=== PATIENT | male | born 1970 | race African-American/Black ===

== ENCOUNTER 2018-07-09 12:39 | Inpatient (IN) | payer OTHER ==
[2018-07-09 14:08] VITALS: BMI 23.6
--- NOTE | 2018-07-09 17:20 | HP ---
CIWA Score - CIWA Score Nausea/Vomitin-No Nausea/No Vomiting Muscle Tremors: 2 Anxiety: 3 Agitation: 3 Paroxysmal Sweats: 3 Orientation: 0-Oriented Tacttile Disturbances: 2-Mild Itch/Numbness/Burn Auditory Disturbances: 0-None Visual Disturbances: 0-None Headache: 0-None Present CIWA-Ar Total Score: 13 Admission ROS BHS - HPI Chief Complaint: alcohol withdrawal symptoms Allergies/Adverse Reactions: Allergies Allergy/AdvReac Type Severity Reaction Status Date / Time No Known Allergies Allergy Verified 07/09/18 16:11 History of Present Illness: 48 yo male with hx of nicotine, alcohol, marijuana and cocaine dependence is here seeking alcohol detox. Last detox [facility] 09/19/17 -09/21/17 left AMA. Hx: bipolar and anxiety currently not on mediations. Denies suicidal / homicidal ideation or hx of suicide attempt. Denies hx seizure, blackouts or DTS. Longest period of sobriety four years (2008 - 2012). Exam Limitations: No Limitations - Ebola screening Have you traveled outside of the country in the last 21 days: No Have you had contact with anyone from an Ebola affected area: No Have you been sick,other than usual withdrawal symptoms: No Do you have a fever: No - Review of Systems Constitutional: Loss of Appetite, Changes in sleep, Weakness, Unintentional Wgt. Loss (55 lbs weight loss x 10 months) EENT: reports: No Symptoms Reported Respiratory: reports: No Symptoms reported Cardiac: reports: No Symptoms Reported GI: reports: Poor Appetite, Poor Fluid Intake : reports: No Symptoms Reported Musculoskeletal: reports: No Symptoms Reported Integumentary: reports: Other (cut rigth middle finger) Endocrine: reports: Increased Thirst Hematology: reports: No Symptoms Reported Psychiatric: reports: Orientated x3, Anxious Other Systems: Reviewed and Negative Patient History - Patient Medical History Hx Anemia: Yes (AT YOUNGER YEARS.) Hx Asthma: No Hx Chronic Obstructive Pulmonary Disease (COPD): No Hx Cancer: No Hx Cardiac Disorders: No Hx Congestive Heart Failure: No Hx Hypertension: No Hx Hypercholesterolemia: No Hx Pacemaker: No HX Cerebrovascular Accident: No Hx Seizures: No Hx Dementia: No Hx Diabetes: No Hx Gastrointestinal Disorders: No Hx Liver Disease: No Hx Genitourinary Disorders: No Hx Sexually Transmitted Disorders: No (DENIES) Hx Renal Disease (ESRD): No Hx Thyroid Disease: No Hx Human Immunodeficiency Virus (HIV): No (NEGATIVE HX) Hx Hepatitis C: No Hx Depression: Yes (NOT CURRENTLY ON MED) Hx Suicide Attempt: No (DENIES) Hx Bipolar Disorder: Yes Hx Schizophrenia: No - Patient Surgical History Past Surgical History: No Hx Neurologic Surgery: No Hx Cataract Extraction: No Hx Cardiac Surgery: No Hx Lung Surgery: No Hx Breast Surgery: No Hx Breast Biopsy: No Hx Abdominal Surgery: No Hx Appendectomy: No Hx Cholecystectomy: No Hx Genitourinary Surgery: No Hx Section: No Hx Orthopedic Surgery: No Anesthesia Reaction: No - PPD History Previous Implant?: No Documented Results: Negative w/o proof Results: CXR 2015 PPD to be Administered?: No - Smoking Cessation Smoking history: Current every day smoker Have you smoked in the past 12 months: Yes Aproximately how many cigarettes per day: 15 Hx Chewing Tobacco Use: No Initiated information on smoking cessation: Yes 'Breaking Loose' booklet given: 07/09/18 - Substance & Tx. History Hx Alcohol Use: Yes Hx Substance Use: Yes Substance Use Type: Alcohol, Cocaine Hx Substance Use Treatment: Yes ([facility] 09/20/17 [facility] ) - Substances Abused Alcohol Route: Oral Frequency: Daily Amount used: Vodka- 1 pint, Beer- 1 25oz, Age of first use: 10 Date of Last Use: 07/09/18 Cocaine Frequency: Daily Amount used: $200-300 Age of first use: 18 Date of Last Use: 07/07/18 Marijuana/Hashish Route: Smoking Frequency: 1-2 times per week Amount used: 1 gm Age of first use: 18 Date of Last Use: 07/07/18 Family Disease History - Family Disease History Family History: Denies Admission Physical Exam BHS - Vital Signs Vital Signs: Vital Signs - 24 hr 07/09/18 14:07 Temperature 99.6 F Pulse Rate 85 Respiratory 18 Rate Blood Pressure 134/71 - Physical General Appearance: Yes: Appropriately Dressed, Disheveled, Thin, Sweating, Anxious HEENTM: Yes: EOMI, Hearing grossly Normal, Normal ENT Inspection, Normocephalic , Normal Voice, VADIM, Pharynx Normal, Tm's normal Respiratory: Yes: Within Normal Limits Neck: Yes: Within Normal Limits Breast: Yes: Breast Exam Deferred Cardiology: Yes: Regular Rhythm, Regular Rate Abdominal: Yes: Normal Bowel Sounds, Non Tender, Flat, Soft Genitourinary: Yes: Within Normal Limits Back: Yes: Normal Inspection Musculoskeletal: Yes: full range of Motion, Gait Steady, Pelvis Stable Extremities: Yes: Within Normal Limits Neurological: Yes: bilingual medical assistant II-XII NML intact, Fully Oriented, Alert, Motor Strength 5/5, Depressed Affect Integumentary: Yes: Normal Color, Dry, Warm, Diaphoresis Lymphatic: Yes: Within Normal Limits - Diagnostic (1) Psychiatric disorder Current Visit: Yes Status: Suspected (2) Alcohol dependence with uncomplicated withdrawal Current Visit: Yes Status: Acute (3) Cannabis dependence, uncomplicated Current Visit: Yes Status: Acute (4) Cocaine dependence, uncomplicated Current Visit: Yes Status: Acute Cleared for Admission [facility] - Detox or Rehab [facility] Level of Care: Medically Managed Detox Regimen/Protocol: Librium [facility] Breath Alcohol Content Breath Alcohol Content: 0.021 Urine Drug Screen - Results Drug Screen Negative: No Urine Drug Screen Results: THC-Marijuana, ABDIRAHMAN-Cocaine
[2018-07-09] MEDS ORDERED: MENTHOL/PHENOL 1 EACH UD MM PRN (17:26)
[2018-07-09] MEDS ORDERED: LOPERAMIDE HCL 2 MG CAPSULE PO PRN (17:26)
[2018-07-09] MEDS ORDERED: MAGNESIUM HYDROX 2400MG/30ML ORAL SUSPENSION 30 ML CUP PO PRN (17:26)
[2018-07-09] MEDS ORDERED: MAG HYDROX/AL HYDROX/SIMETH 30 ML UNIT-DOSE CUP PO PRN (17:26)
[2018-07-09] MEDS ORDERED: hydrOXYzine PAMOATE 50 MG CAPSULE (FP) PO PRN (17:26)
[2018-07-09] MEDS ORDERED: guaiFENesin/D-METHORPHAN HB 10 ML UNIT-DOSE CUPS PO PRN (17:26)
[2018-07-09] MEDS ORDERED: P-EPHED 60MG/TRIPROLIDI 2.5MG TABLET PO PRN (17:26)
[2018-07-09] MEDS ORDERED: chlordiazePOXIDE HCL 25 MG CAPSULE PO PRN (17:26)
[2018-07-09] MEDS ORDERED: IBUPROFEN 400 MG TABLET (FP) PO PRN (17:26)
[2018-07-09] MEDS ORDERED: ACETAMINOPHEN 325 MG TABLET (FP) PO PRN (17:26)
[2018-07-09] MEDS ORDERED: MAGNESIUM CITRATE 300 ML BOTTLE PO PRN (17:26)
[2018-07-09] MEDS ORDERED: chlordiazePOXIDE HCL 25 MG CAPSULE PO ONE (18:30)
[2018-07-09] MEDS: BACITRACIN 0.9 GM PACKET TP SCH (19:22)
[2018-07-09] MEDS ORDERED: MELATONIN 5 MG TABLETS PO PRN (22:00)
[2018-07-09] MEDS: THIAMINE HCL 100 MG TABLET (FP) PO SCH (22:25)
[2018-07-09] MEDS: chlordiazePOXIDE HCL 25 MG CAPSULE PO SCH (22:25)
[2018-07-10 02:00] LABS: URINE APPEARANCE SLCLOUDY; URINE BILIRUBIN NEGATIVE (<2.0 mg/dL); URINE COLOR YELLOW; URINE GLUCOSE (UA) NEGATIVE (NEGATIVE); URINE KETONE TRACE (NEGATIVE); URINE LEUK ESTERASE TRACE (NEGATIVE); URINE NITRITE NEGATIVE (NEGATIVE); URINE PROTEIN NEGATIVE (NEGATIVE); URINE UROBILINOGEN 4.0 E.U/dl mg/dL (0.2-1.0)
[2018-07-10 02:23] LABS: URINE MUCUS RARE
[2018-07-10] MEDS: chlordiazePOXIDE HCL 25 MG CAPSULE PO SCH ×4 (05:29→23:09)
[2018-07-10] MEDS ORDERED: PRENATAL VITAMINS W/ FOLIC ACID TABLET (FP) PO SCH (10:00)
[2018-07-10 10:48] LABS: CHLORIDE 108 mmol/L (98-107); POTASSIUM 3.5 mmol/L (3.5-5.1); SODIUM 144 mmol/L (136-145)
[2018-07-10 10:50] LABS: HEMATOCRIT 38.2 % (35.4-49); MCH 33.1 pg (25.7-33.7); MEAN CELL VOLUME 97.2 fl (80-96); MEAN PLT VOLUME 11.1 fl (7.5-11.1); PLATELET COUNT 122 K/MM3 (134-434); RBC 3.93 M/mm3 (4.00-5.60); RDW 12.9 % (11.9-15.9); WHITE BLOOD COUNT 2.7 K/mm3 (4.0-10.0)
[2018-07-10] MEDS: BACITRACIN 0.9 GM PACKET TP SCH (10:55)
[2018-07-10 11:11] LABS: ALBUMIN 3.3 g/dl (3.4-5.0); ALK PHOS 46 U/L (45-117); ANION GAP 6 MMOL/L (8-16); BILIRUBIN,TOTAL 0.7 mg/dL (0.2-1.0); BLOOD UREA NITROGEN 16 mg/dL (7-18); CALCIUM 8.4 mg/dL (8.5-10.1); CO2 30 mmol/L (21-32); CREATININE 0.8 mg/dL (0.7-1.3); GLUCOSE,RANDOM 96 mg/dL (74-106); SGOT/AST 51 U/L (15-37); SGPT/ALT 52 U/L (12-78); TOT PROT 6.2 g/dl (6.4-8.2)
--- NOTE | 2018-07-10 12:33 | EKG ---
Test Reason : Blood Pressure : / mmHG Vent. Rate : 085 BPM Atrial Rate : 085 BPM P-R Int : 142 ms QRS Dur : 088 ms QT Int : 370 ms P-R-T Axes : 078 075 039 degrees QTc Int : 440 ms NORMAL SINUS RHYTHM NORMAL ECG WHEN COMPARED WITH ECG OF 19-SEP-2017 18:30, T WAVE INVERSION NO LONGER EVIDENT IN ANTERIOR LEADS QT HAS SHORTENED Confirmed by JYOTHI OCAMPO, ANTONIO ([id number]) on 07/10/2018 12:32:34 PM Referred By: Confirmed By:ANTONIO ROE MD
--- NOTE | 2018-07-10 13:22 | PN ---
[facility] CIWA - CIWA Score Nausea/Vomitin-No Nausea/No Vomiting Muscle Tremors: 4-Moderate,w/Arms Extend Anxiety: 4-Mod. Anxious/Guarded Agitation: 4-Moderately Restless Paroxysmal Sweats: 1-Minimal Palms Moist Orientation: 0-Oriented Tacttile Disturbances: 0-None Auditory Disturbances: 0-None Visual Disturbances: 0-None Headache: 0-None Present CIWA-Ar Total Score: 13 S Progress Note (SOAP) Subjective: ANXIETY,SWEATS,FATIGUE. Objective: 07/10/18 13:22 Vital Signs 07/10/18 07/10/18 06:24 09:06 Temperature 97.6 F 96.4 F L Pulse Rate 62 70 Respiratory 18 18 Rate Blood Pressure 123/75 115/81 Laboratory Tests 07/09/18 07/10/18 07/10/18 23:35 07:30 07:30 WBC 2.7 L RBC 3.93 L Hgb 13.0 Hct 38.2 MCV 97.2 H MCH 33.1 MCHC 34.0 RDW 12.9 Plt Count 122 L D MPV 11.1 Sodium Potassium Chloride Carbon Dioxide Anion Gap BUN Creatinine Creat Clearance w eGFR Random Glucose Calcium Total Bilirubin AST ALT Alkaline Phosphatase Total Protein Albumin Urine Color Yellow Urine Appearance Slcloudy Urine pH 6.0 Ur Specific [place] 1.021 Urine Protein Negative Urine Glucose (UA) Negative Urine Ketones Trace H Urine Blood Negative Urine Nitrite Negative Urine Bilirubin Negative Urine Urobilinogen 4.0 e.u/dl Ur Leukocyte Esterase Trace Urine WBC (Auto) 9 Urine RBC (Auto) None Urine Mucus Rare RPR Titer HIV 1&2 Antibody Screen Negative HIV P24 Antigen Negative 07/10/18 07/10/18 07:30 07:30 WBC RBC Hgb Hct MCV MCH MCHC RDW Plt Count MPV Sodium 144 Potassium 3.5 Chloride 108 H Carbon Dioxide 30 Anion Gap 6 L BUN 16 Creatinine 0.8 Creat Clearance w eGFR > 60 Random Glucose 96 Calcium 8.4 L Total Bilirubin 0.7 AST 51 H D ALT 52 Alkaline Phosphatase 46 Total Protein 6.2 L Albumin 3.3 L Urine Color Urine Appearance Urine pH Ur Specific [place] Urine Protein Urine Glucose (UA) Urine Ketones Urine Blood Urine Nitrite Urine Bilirubin Urine Urobilinogen Ur Leukocyte Esterase Urine WBC (Auto) Urine RBC (Auto) Urine Mucus RPR Titer Nonreactive HIV 1&2 Antibody Screen HIV P24 Antigen Assessment: 07/10/18 13:22 WITHDRAWAL SX Plan: CONTINUE DETOX
--- NOTE | 2018-07-10 14:46 | CONSULT ---
[facility] Psychiatric Consult - Data Date of interview: 07/10/18 Admission source: [facility] Identifying data: Readmission to [facility] for this 48 y/o AA male, on 3 , for detoxification treatment (alcohol,cocaine,cannabis).Patient is single without dependents,domiciled and reportedly employed. Substance Abuse History: Patient is a hostile,irritable and superficially cooperative historian.History of substance abuse is takebn from [facility] report : Smoking history: Current every day smoker. Have you smoked in the past 12 months: Yes. Aproximately how many cigarettes per day: 15. Hx Chewing Tobacco Use: No. Initiated information on smoking cessation: Yes. 'Breaking Loose' booklet given: 07/09/18. - Substance & Tx. History. Hx Alcohol Use: Yes. Hx Substance Use: Yes. Substance Use Type: Alcohol, Cocaine. Hx Substance Use Treatment: Yes ([facility] 09/20/17 left AMA ). - Substances Abused. Alcohol. Route: Oral. Frequency: Daily. Amount used: Vodka- 1 pint, Beer- 1 25oz,. Age of first use: 10. Date of Last Use: 07/09/18. Cocaine. Frequency: Daily. Amount used: $200-300. Age of first use: 18. Date of Last Use: . Marijuana/Hashish. Route: Smoking. Frequency: 1-2 times per week. Amount used: 1 gm. Age of first use: 18. Date of Last Use: 07/07/18 Medical History: Patient endorses good general health. Psychiatric History: No information from the patient.Review of records indicates a single contact with psychiatrist,seven years ago, who diagnosed him with Mood Disorder and prescribed valproate + quetiapine.Mr Barron did not follow with [facility] care.Denies history of suicide attempts. Physical/Sexual Abuse/Trauma History: No information. Additional Comment: Urine Drug Screen Results: THC-Marijuana, ABDIRAHMAN-Cocaine.Noted. Mental Status Exam - Mental Status Exam Alert and Oriented to: Time, Place, Person Cognitive Function: Good Patient Appearance: Well Groomed Mood: Angry, Hostile, Withdrawn, Irritable Affect: Mood Congruent Patient Behavior: Fatigued, Uncooperative Speech Pattern: Clear Voice Loudness: Normal Thought Process: Goal Oriented Thought Disorder: Not Present Hallucinations: Denies Suicidal Ideation: Denies Homicidal Ideation: Denies Insight/Judgement: Poor Sleep: Well Appetite: Good Gait/Station: Normal (observed as ambulatory prior to bedside interview) Psychiatric Findings - Problem List ([place] 1, 2,3) (1) Alcohol dependence with uncomplicated withdrawal Current Visit: Yes Status: Acute (2) Cannabis dependence, uncomplicated Current Visit: Yes Status: Acute (3) Cocaine dependence, uncomplicated Current Visit: Yes Status: Acute (4) Nicotine dependence Current Visit: Yes Status: Acute Qualifiers: Nicotine product type: cigarettes Substance use status: in withdrawal Qualified Code(s): F17.213 - Nicotine dependence, cigarettes, with withdrawal (5) Drug-induced mood disorder Current Visit: Yes Status: Suspected - Initial Treatment Plan Initial Treatment Plan: Psychoeducation.Detoxification.Observation.
[2018-07-10] MEDS: THIAMINE HCL 100 MG TABLET (FP) PO SCH (23:09)
[2018-07-11 06:28] VITALS: BP 103/61; PULSE 65; TEMP 97.3
[2018-07-11] MEDS: chlordiazePOXIDE HCL 25 MG CAPSULE PO SCH (06:29)
--- NOTE | 2018-07-11 11:10 | DS ---
[facility] Detox Discharge Summary Admission Date: 07/09/18 Discharge Date: 07/11/18 - History Present History: Alcohol Dependence, Cannabis Dependence, Cocaine Dependence Additional Comments: PT SIGNED OUT AMA EARLIER PREVIOUS SHIFT. Pertinent Past History: PLEASE SEE DX BELOW - Physical Exam Results Vital Signs: Vital Signs Temperature 97.3 F L 07/11/18 06:27 Pulse Rate 65 07/11/18 06:27 Respiratory Rate 18 07/11/18 06:27 Blood Pressure 103/61 07/11/18 06:27 O2 Sat by Pulse Oximetry (%) Pertinent Admission Physical Exam Findings: WITHDRAWAL SX Laboratory Tests 07/09/18 07/10/18 07/10/18 23:35 07:30 07:30 WBC 2.7 L RBC 3.93 L Hgb 13.0 Hct 38.2 MCV 97.2 H MCH 33.1 MCHC 34.0 RDW 12.9 Plt Count 122 L D MPV 11.1 Sodium Potassium Chloride Carbon Dioxide Anion Gap BUN Creatinine Creat Clearance w eGFR Random Glucose Calcium Total Bilirubin AST ALT Alkaline Phosphatase Total Protein Albumin Urine Color Yellow Urine Appearance Slcloudy Urine pH 6.0 Ur Specific [place] 1.021 Urine Protein Negative Urine Glucose (UA) Negative Urine Ketones Trace H Urine Blood Negative Urine Nitrite Negative Urine Bilirubin Negative Urine Urobilinogen 4.0 e.u/dl Ur Leukocyte Esterase Trace Urine WBC (Auto) 9 Urine RBC (Auto) None Urine Mucus Rare RPR Titer HIV 1&2 Antibody Screen Negative HIV P24 Antigen Negative 07/10/18 07/10/18 07:30 07:30 WBC RBC Hgb Hct MCV MCH MCHC RDW Plt Count MPV Sodium 144 Potassium 3.5 Chloride 108 H Carbon Dioxide 30 Anion Gap 6 L BUN 16 Creatinine 0.8 Creat Clearance w eGFR > 60 Random Glucose 96 Calcium 8.4 L Total Bilirubin 0.7 AST 51 H D ALT 52 Alkaline Phosphatase 46 Total Protein 6.2 L Albumin 3.3 L Urine Color Urine Appearance Urine pH Ur Specific [place] Urine Protein Urine Glucose (UA) Urine Ketones Urine Blood Urine Nitrite Urine Bilirubin Urine Urobilinogen Ur Leukocyte Esterase Urine WBC (Auto) Urine RBC (Auto) Urine Mucus RPR Titer Nonreactive HIV 1&2 Antibody Screen HIV P24 Antigen - Treatment Hospital Course: Discharged Condition Good - Medication Discharge Medications: Ambulatory Orders NK [No Known Home Medication] 09/19/17 - Diagnosis (1) Alcohol dependence with uncomplicated withdrawal Status: Acute (2) Cannabis dependence, uncomplicated Status: Acute (3) Cocaine dependence, uncomplicated Status: Acute (4) Nicotine dependence Status: Acute Qualifiers: Nicotine product type: cigarettes Substance use status: in withdrawal Qualified Code(s): F17.213 - Nicotine dependence, cigarettes, with withdrawal - AMA Did Patient Leave Against Medical Advice: Yes (AMA)
[2018-07-11] MEDS ORDERED: chlordiazePOXIDE 5 MG CAPSULE PO SCH (23:00)
[2018-07-12] MEDS ORDERED: chlordiazePOXIDE HCL 10 MG CAPSULE PO SCH (23:00)
== END 2018-07-11 07:56 | disposition left against medical advice (07) | DRG 770 ==
LOC: YASAS 12:39 → Y3N 18:05
PROC: HZ2ZZZZ Detoxification Services for Substance Abuse Treatment (ICD-10-PCS; principal; 2018-07-09)
DX: F10.230 Alcohol dependence with withdrawal, uncomplicated (principal); F14.20 Cocaine dependence, uncomplicated; F12.20 Cannabis dependence, uncomplicated; F17.213 Nicotine dependence, cigarettes, with withdrawal; F19.24 Other psychoactive substance dependence with psychoactive substance-induced mood disorder; F31.9 Bipolar disorder, unspecified; F99 Mental disorder, not otherwise specified; Z87.09 Personal history of other diseases of the respiratory system
CPT/HCPCS: 36415; 80053; 81003; 81015; 85027; 86593; 87389; 93005; 93010

== ENCOUNTER 2018-08-22 10:48 | Inpatient (IN) | payer OTHER ==
[2018-08-22 11:19] VITALS: BMI 22.7
--- NOTE | 2018-08-22 21:17 | HP ---
Admission ROS [facility] Chief Complaint: alcol Allergies/Adverse Reactions: Allergies Allergy/AdvReac Type Severity Reaction Status Date / Time No Known Allergies Allergy Verified 08/22/18 13:45 History of Present Illness: 48 yo male with hx of nicotine, alcohol, marijuana, cocaine dependence is here seeking rehabilitation. Last detox -08/20 [facility]. Hx: bipolar and anxiety currently not on mediations. Denies suicidal / homicidal ideation or hx of suicide attempt. Denies hx seizure, blackouts or DTS. Longest period of sobriety four years (2008 - 2012). Exam Limitations: No Limitations - Ebola screening Have you traveled outside of the country in the last 21 days: No Have you had contact with anyone from an Ebola affected area: No Have you been sick,other than usual withdrawal symptoms: No Do you have a fever: No - Review of Systems Constitutional: No Symptoms Reported EENT: reports: No Symptoms Reported Respiratory: reports: Cough (x 1 day) Cardiac: reports: No Symptoms Reported GI: reports: No Symptoms Reported : reports: No Symptoms Reported Musculoskeletal: reports: Back Pain Integumentary: reports: No Symptoms Reported Neuro: reports: No Symptoms reported Endocrine: reports: No Symptoms Reported Hematology: reports: No Symptoms Reported Psychiatric: reports: Orientated x3, Agitated Other Systems: Reviewed and Negative Patient History - Patient Medical History Hx Anemia: Yes (AT YOUNGER YEARS.) Hx Asthma: No Hx Chronic Obstructive Pulmonary Disease (COPD): No Hx Cancer: No Hx Cardiac Disorders: No Hx Congestive Heart Failure: No Hx Hypertension: No Hx Hypercholesterolemia: No Hx Pacemaker: No HX Cerebrovascular Accident: No Hx Seizures: No Hx Dementia: No Hx Diabetes: No Hx Gastrointestinal Disorders: No Hx Liver Disease: No Hx Genitourinary Disorders: No Hx Sexually Transmitted Disorders: No Hx Renal Disease (ESRD): No Hx Thyroid Disease: No Hx Human Immunodeficiency Virus (HIV): No (NEGATIVE HX) Hx Hepatitis C: No Hx Depression: No Hx Suicide Attempt: No Hx Bipolar Disorder: Yes Hx Schizophrenia: No - Patient Surgical History Past Surgical History: No Hx Neurologic Surgery: No Hx Cataract Extraction: No Hx Cardiac Surgery: No Hx Lung Surgery: No Hx Breast Surgery: No Hx Breast Biopsy: No Hx Abdominal Surgery: No Hx Appendectomy: No Hx Cholecystectomy: No Hx Genitourinary Surgery: No Hx Section: No Hx Orthopedic Surgery: No Anesthesia Reaction: No - PPD History Previous Implant?: Yes Documented Results: Positive w/o proof Results: CXR(-)09/20/17 PPD to be Administered?: No - Smoking Cessation Smoking history: Current every day smoker Have you smoked in the past 12 months: Yes Aproximately how many cigarettes per day: 20 Hx Chewing Tobacco Use: No Initiated information on smoking cessation: Yes 'Breaking Loose' booklet given: 08/22/18 - Substance & Tx. History Hx Alcohol Use: Yes Hx Substance Use: Yes Substance Use Type: Alcohol, Cocaine, Marijuana Hx Substance Use Treatment: Yes - Substances Abused Crack Route: Smoking Frequency: No use in 30 days Amount used: $200 Age of first use: 15 Date of Last Use: 08/20/18 Alcohol-vodka/loren Route: Oral Frequency: Daily Amount used: fifth Age of first use: 10 Date of Last Use: 08/22/18 Marijuana Route: Smoking Frequency: 1-3 times last 30 days Amount used: $20 Age of first use: 15 Date of Last Use: 08/11/18 Family Disease History - Family Disease History Family History: Denies Admission Physical Exam S - Vital Signs Vital Signs: Vital Signs - 24 hr 08/22/18 08/22/18 11:18 17:42 Temperature 99.1 F 99.3 F Pulse Rate 95 H 90 Respiratory 20 18 Rate Blood Pressure 127/69 125/83 - Physical General Appearance: Yes: Appropriately Dressed, Thin, Irritable, Anxious HEENTM: Yes: EOMI, Hearing grossly Normal, Normal ENT Inspection, Normocephalic , Normal Voice, VADIM, Pharynx Normal, Tm's normal, Rhinorrhea Respiratory: Yes: Chest Non-Tender, Lungs Clear, Normal Breath Sounds, No Respiratory Distress, No Accessory Muscle Use Neck: Yes: Within Normal Limits Breast: Yes: Breast Exam Deferred Cardiology: Yes: Regular Rhythm, Regular Rate Abdominal: Yes: Normal Bowel Sounds, Non Tender, Flat, Soft Genitourinary: Yes: Within Normal Limits Back: Yes: Normal Inspection Musculoskeletal: Yes: full range of Motion, Gait Steady, Pelvis Stable Extremities: Yes: Normal Capillary Refill, Normal Inspection, Normal Range of Motion, Non-Tender Neurological: Yes: harbor pilot II-XII NML intact, Fully Oriented, Alert, Motor Strength 5/5, Normal Response Integumentary: Yes: Normal Color Lymphatic: Yes: Within Normal Limits - Diagnostic (1) Alcohol dependence Current Visit: Yes Status: Acute Qualifiers: Substance use status: uncomplicated Qualified Code(s): F10.20 - Alcohol dependence, uncomplicated (2) Cannabis dependence, uncomplicated Current Visit: Yes Status: Acute (3) Cocaine dependence, uncomplicated Current Visit: Yes Status: Acute (4) Nicotine dependence Current Visit: Yes Status: Acute Qualifiers: Nicotine product type: cigarettes Substance use status: in withdrawal Qualified Code(s): F17.213 - Nicotine dependence, cigarettes, with withdrawal [facility] Breath Alcohol Content Breath Alcohol Content: 0.088 Urine Drug Screen - Results Drug Screen Negative: No Urine Drug Screen Results: THC-Marijuana, ABDIRAHMAN-Cocaine, BZO-Benzodiazepines Inpatient Rehab Admission - Initial Determination Are CD services needed?: Yes Free of communicable disease: Yes Not in need of hospitalization: Yes - Rehab Admission Criteria Previous failed treatment: Yes Poor recovery environment: Yes Comorbidities: Yes Lacks judgement: Yes Patient is meeting Inpatient Rehab admission criteria:: Yes
[2018-08-22] MEDS ORDERED: IBUPROFEN 400 MG TABLET (FP) PO PRN (21:21)
[2018-08-22] MEDS ORDERED: hydrOXYzine PAMOATE 50 MG CAPSULE (FP) PO PRN (21:21)
[2018-08-22] MEDS ORDERED: MAGNESIUM HYDROX 2400MG/30ML ORAL SUSPENSION 30 ML CUP PO PRN (21:21)
[2018-08-22] MEDS ORDERED: LOPERAMIDE HCL 2 MG CAPSULE PO PRN (21:21)
[2018-08-22] MEDS ORDERED: MAGNESIUM CITRATE 300 ML BOTTLE PO PRN (21:21)
[2018-08-22] MEDS ORDERED: MAG HYDROX/AL HYDROX/SIMETH 30 ML UNIT-DOSE CUP PO PRN (21:21)
[2018-08-22] MEDS ORDERED: MENTHOL/PHENOL 1 EACH UD MM PRN (21:21)
[2018-08-22] MEDS ORDERED: ACETAMINOPHEN 325 MG TABLET (FP) PO PRN (21:21)
[2018-08-22] MEDS ORDERED: MELATONIN 5 MG TABLETS PO PRN (22:00)
[2018-08-22] MEDS: P-EPHED 60MG/TRIPROLIDI 2.5MG TABLET PO PRN (22:18)
[2018-08-22] MEDS: THIAMINE HCL 100 MG TABLET (FP) PO SCH (22:20)
[2018-08-22] MEDS: guaiFENesin/D-METHORPHAN HB 10 ML UNIT-DOSE CUPS PO PRN (22:20)
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
[2018-08-23 10:14] LABS: HEMATOCRIT 40.4 % (35.4-49); MCH 31.3 pg (25.7-33.7); MCHC 32.2 g/dl (32.0-35.9); MEAN CELL VOLUME 97.4 fl (80-96); MEAN PLT VOLUME 11.3 fl (7.5-11.1); PLATELET COUNT 174 K/MM3 (134-434); RBC 4.15 M/mm3 (4.00-5.60); RDW 13.6 % (11.9-15.9); WHITE BLOOD COUNT 4.2 K/mm3 (4.0-10.0)
[2018-08-23 10:26] LABS: ALBUMIN 4.2 g/dl (3.4-5.0); ALK PHOS 67 U/L (45-117); ANION GAP 11 MMOL/L (8-16); BILIRUBIN,TOTAL 0.6 mg/dL (0.2-1); BLOOD UREA NITROGEN 11 mg/dL (7-18); CALCIUM 9.6 mg/dL (8.5-10.1); CHLORIDE 105 mmol/L (98-107); CO2 24 mmol/L (21-32); CREATININE 0.8 mg/dL (0.55-1.3); GLUCOSE,RANDOM 94 mg/dL (74-106); POTASSIUM 4.1 mmol/L (3.5-5.1); SGOT/AST 51 U/L (15-37); SGPT/ALT 46 U/L (13-61); SODIUM 140 mmol/L (136-145); TOT PROT 7.8 g/dl (6.4-8.2)
[2018-08-23] MEDS: NICOTINE 21 MG/24 HOURS TOPICAL PATCH TD SCH (10:38)
[2018-08-23] MEDS: QUEtiapine FUMARATE 25 MG TABLET (FP) PO SCH (10:38)
[2018-08-23] MEDS: PRENATAL VITAMINS W/ FOLIC ACID TABLET (FP) PO SCH (10:38)
[2018-08-23] MEDS: P-EPHED 60MG/TRIPROLIDI 2.5MG TABLET PO PRN ×2 (10:48→19:56)
[2018-08-23] MEDS: guaiFENesin/D-METHORPHAN HB 10 ML UNIT-DOSE CUPS PO PRN ×2 (10:51→19:56)
[2018-08-23] MEDS ORDERED: FLU VACCINE QUAD 60 MCG/0.5 ML (MDV 18-19) IM ONE (12:00)
[2018-08-23 14:54] LABS: URINE APPEARANCE CLEAR; URINE BILIRUBIN NEGATIVE (<2.0 mg/dL); URINE COLOR YELLOW; URINE GLUCOSE (UA) NEGATIVE (NEGATIVE); URINE KETONE NEGATIVE (NEGATIVE); URINE LEUK ESTERASE 2+ (NEGATIVE); URINE NITRITE NEGATIVE (NEGATIVE); URINE PROTEIN NEGATIVE (NEGATIVE); URINE UROBILINOGEN NEGATIVE mg/dL (0.2-1.0)
[2018-08-23 15:06] LABS: EPI CELLS RARE /HPF (FEW); URINE MUCUS RARE
[2018-08-23] MEDS ORDERED: DIVALPROEX SODIUM 500 MG TABLET E.C. ONE ×3 (20:17→21:47)
[2018-08-23] MEDS: QUEtiapine FUMARATE 100 MG TABLET (FP) PO SCH (21:21)
[2018-08-23] MEDS: THIAMINE HCL 100 MG TABLET (FP) PO SCH (21:21)
[2018-08-23] MEDS ORDERED: DIVALPROEX SODIUM 250 MG TABLET E.C. ONE (21:47)
[2018-08-23] MEDS: DIVALPROEX 250 MG, DIVALPROEX 500 MG PO SCH (21:52)
[2018-08-23] MEDS ORDERED: DIVALPROEX SODIUM 250 MG TABLET E.C. PO SCH (22:00)
[2018-08-24] MEDS: PRENATAL VITAMINS W/ FOLIC ACID TABLET (FP) PO SCH (10:07)
[2018-08-24] MEDS: NICOTINE 21 MG/24 HOURS TOPICAL PATCH TD SCH (10:07)
[2018-08-24] MEDS: QUEtiapine FUMARATE 25 MG TABLET (FP) PO SCH (10:07)
--- NOTE | 2018-08-24 18:10 | EKG ---
Test Reason : Blood Pressure : / mmHG Vent. Rate : 082 BPM Atrial Rate : 082 BPM P-R Int : 150 ms QRS Dur : 088 ms QT Int : 392 ms P-R-T Axes : 074 076 028 degrees QTc Int : 457 ms NORMAL SINUS RHYTHM POSSIBLE LEFT ATRIAL ENLARGEMENT BORDERLINE ECG WHEN COMPARED WITH ECG OF 09-JUL-2018 19:06, NO SIGNIFICANT CHANGE WAS FOUND Confirmed by LINETTE OCAMPO, UMER ([id number]) on 08/24/2018 6:10:22 PM Referred By: Ric GARDNER Confirmed By:UMER SUE MD
[2018-08-24] MEDS ORDERED: DIVALPROEX SODIUM 500 MG TABLET E.C. ONE (20:30)
[2018-08-24] MEDS ORDERED: DIVALPROEX SODIUM 250 MG TABLET E.C. ONE (20:31)
[2018-08-24] MEDS: QUEtiapine FUMARATE 100 MG TABLET (FP) PO SCH (21:28)
[2018-08-24] MEDS: THIAMINE HCL 100 MG TABLET (FP) PO SCH (21:28)
[2018-08-24] MEDS: DIVALPROEX 250 MG, DIVALPROEX 500 MG PO SCH (21:28)
[2018-08-24] MEDS: P-EPHED 60MG/TRIPROLIDI 2.5MG TABLET PO PRN (21:30)
[2018-08-24] MEDS: guaiFENesin/D-METHORPHAN HB 10 ML UNIT-DOSE CUPS PO PRN (21:31)
[2018-08-24] MEDS: NICOTINE POLACRILEX 2 MG GUM BC PRN (21:31)
[2018-08-25 07:13] VITALS: BP 108/71; PULSE 83; TEMP 98.4
[2018-08-25] MEDS: NICOTINE 21 MG/24 HOURS TOPICAL PATCH TD SCH (09:53)
[2018-08-25] MEDS: QUEtiapine FUMARATE 25 MG TABLET (FP) PO SCH (09:53)
[2018-08-25] MEDS: NICOTINE POLACRILEX 2 MG GUM BC PRN (09:53)
[2018-08-25] MEDS: PRENATAL VITAMINS W/ FOLIC ACID TABLET (FP) PO SCH (09:53)
== END 2018-08-25 13:00 | disposition left against medical advice (07) | DRG 770 ==
LOC: YASAS 10:48 → Y5N 16:36
PROVIDERS: ADMIT Psychiatry & Neurology Psychiatry; ATTEND Psychiatry & Neurology Psychiatry
PROC: HZ42ZZZ Group Counseling for Substance Abuse Treatment, Cognitive-Behavioral (ICD-10-PCS; principal; 2018-08-22)
DX: F10.20 Alcohol dependence, uncomplicated (principal); F14.20 Cocaine dependence, uncomplicated; F12.20 Cannabis dependence, uncomplicated; F17.213 Nicotine dependence, cigarettes, with withdrawal; F31.9 Bipolar disorder, unspecified; F43.10 Post-traumatic stress disorder, unspecified; F19.24 Other psychoactive substance dependence with psychoactive substance-induced mood disorder; F19.282 Other psychoactive substance dependence with psychoactive substance-induced sleep disorder; R76.11 Nonspecific reaction to tuberculin skin test without active tuberculosis; Z86.2 Personal history of diseases of the blood and blood-forming organs and certain disorders involving the immune mechanism
CPT/HCPCS: 36415; 80053; 81003; 81015; 85027; 86593; 87389; 90688; 93005; 93010; G0008

== ENCOUNTER 2019-12-27 12:44 | Inpatient (IN) | payer OTHER ==
--- NOTE | 2019-12-27 12:52 | BHS.RME ---
Substance Use & Tx History - Substance Use History Alcohol Substance amount: 1/5 vodka or rum Frequency of use: Daily Substance route: Oral Date of Last Use: 12/27/19 - Last Treatment Date of last treatment: 08/23/18 Treatment type: Substance Use Disorder (ANGELO) (last treatment at [facility] was however he has been in the [facility] (outpatient) in [place] until about a month ago - was sick with flu then just never went back and relapsed with drinking) Where was last treatment: Rehab CIWA Nausea/Vomitin Muscle Tremors: 3 Anxiety: 3 Agitation: 2 Paroxysmal Sweats: 1-Minimal Palms Moist Orientation: 1-Uncertain about Date Tacttile Disturbances: 0-None Auditory Disturbances: 1-Very Mild Visual Disturbances: 1-Very Mild Sensitivity Headache: 1-Very Mild CIWA-Ar Total Score: 15
[2019-12-27 14:01] VITALS: BMI 23.6
--- NOTE | 2019-12-27 14:23 | HP ---
CIWA Score Nausea/Vomitin Muscle Tremors: 3 Anxiety: 3 Agitation: 2 Paroxysmal Sweats: 1-Minimal Palms Moist Orientation: 1-Uncertain about Date Tacttile Disturbances: 0-None Auditory Disturbances: 1-Very Mild Visual Disturbances: 2-Mild Sensitivity Headache: 1-Very Mild CIWA-Ar Total Score: 16 - Admission Criteria OASAS Guidelines: Admission for Medically Managed Detox: Requires at least one of the followin. CIWA greater than 12 2. Seizures within the past 24 hours 3. Delirium tremens within the past 24 hours 4. Hallucinations within the past 24 hours 5. Acute intervention needed for co occurring medical disorder 6. Acute intervention needed for co occurring psychiatric disorder 7. Severe withdrawal that cannot be handled at a lower level of care (continued vomiting, continued diarrhea, abnormal vital signs) requiring intravenous medication and/or fluids 8. Patient presents the following: CIWA greater than 12 Admission Criteria Met: Admission criteria met Admitting History and Physical - Smoking History Smoking history: Current every day smoker Have you smoked in the past 12 months: Yes Aproximately how many cigarettes per day: 20 - Alcohol/Substance Use Hx Alcohol Use: Yes Admission ROS S - HPI Chief Complaint: I need detox Allergies/Adverse Reactions: Allergies Allergy/AdvReac Type Severity Reaction Status Date / Time No Known Allergies Allergy Verified 12/27/19 13:54 History of Present Illness: 49 year old man with alcohol and xanax use presents for detox, he denies alcohol related seizure, reports blackouts, last episode 2 months ago. Patient reports xanax use not a significant problem and only wants alcohol detox. Exam Limitations: No Limitations - Ebola screening Have you traveled outside of the country in the last 21 days: No Have you had contact with anyone from an Ebola affected area: No Have you been sick,other than usual withdrawal symptoms: No Do you have a fever: No - Review of Systems Constitutional: Loss of Appetite, Night Sweats, Changes in sleep, Weight Stable EENT: reports: Blurred Vision Respiratory: reports: No Symptoms reported Cardiac: reports: No Symptoms Reported GI: reports: Nausea, Poor Appetite, Abdominal cramping : reports: No Symptoms Reported Musculoskeletal: reports: Joint Pain, Muscle Weakness Integumentary: reports: Dryness Neuro: reports: Numbness, Tremors Endocrine: reports: No Symptoms Reported Hematology: reports: No Symptoms Reported Psychiatric: reports: Anxious, other (bipolar disorder) Other Systems: Reviewed and Negative Patient History - Patient Medical History Hx Anemia: No Hx Asthma: No Hx Chronic Obstructive Pulmonary Disease (COPD): No Hx Cancer: No Hx Cardiac Disorders: No Hx Congestive Heart Failure: No Hx Hypertension: No Hx Hypercholesterolemia: No Hx Pacemaker: No HX Cerebrovascular Accident: No Hx Seizures: No Hx Dementia: No Hx Diabetes: No Hx Gastrointestinal Disorders: No Hx Liver Disease: No Hx Genitourinary Disorders: No Hx Sexually Transmitted Disorders: No Hx Renal Disease (ESRD): No Hx Thyroid Disease: No Hx Human Immunodeficiency Virus (HIV): No Hx Hepatitis C: No Hx Depression: Yes Hx Suicide Attempt: No Hx Bipolar Disorder: Yes Hx Schizophrenia: No - Patient Surgical History Past Surgical History: No - PPD History Previous Implant?: No Documented Results: Positive w/o proof Implanted On Prior [facility] Admission?: No Results: CXR(-)09/20/17 PPD to be Administered?: No - Reproductive History Patient : No - Smoking Cessation Smoking history: Current every day smoker Have you smoked in the past 12 months: Yes Aproximately how many cigarettes per day: 20 Hx Chewing Tobacco Use: No Initiated information on smoking cessation: Yes 'Breaking Loose' booklet given: 12/27/19 - Substances abused Alcohol Substance route: Oral Frequency: Daily Amount used: 1 liter of vodka Age of first use: 8 Date of last use: 12/27/19 None Substance route: Oral Frequency: 1-2 times per week Amount used: 1-2 bars Age of first use: 15 Date of last use: 12/25/19 Cocaine Substance route: Smoking Frequency: 1-3 times last 30 days Amount used: $100 Age of first use: 15 Date of last use: 12/26/19 Crystal meth Substance route: Smoking Frequency: 1-3 times last 30 days Amount used: $100 Age of first use: 24 Date of last use: 12/26/19 Admission Physical Exam BHS - Vital Signs Vital Signs: Vital Signs - 24 hr 12/27/19 13:56 Temperature 98.3 F Pulse Rate 103 H Respiratory 16 Rate Blood Pressure 133/80 - Physical General Appearance: Yes: No Apparent Distress HEENTM: Yes: Hearing grossly Normal, Normal ENT Inspection, Normocephalic, Normal Voice, Pharynx Normal Respiratory: Yes: Chest Non-Tender, Lungs Clear, Normal Breath Sounds, No Respiratory Distress, No Accessory Muscle Use Neck: Yes: No masses,lesions,Nodules, Supple Breast: Yes: Breast Exam Deferred Cardiology: Yes: Regular Rhythm, Regular Rate, S1, S2 Abdominal: Yes: Normal Bowel Sounds, Non Tender, Soft Genitourinary: Yes: Within Normal Limits Back: Yes: Normal Inspection Musculoskeletal: Yes: full range of Motion, Gait Steady, Pelvis Stable Extremities: Yes: Tremors Neurological: Yes: powder monkey II-XII NML intact, Fully Oriented, Alert, Normal Mood/ Affect, Normal Response Integumentary: Yes: Normal Color, Dry Lymphatic: Yes: Within Normal Limits - Diagnostic (1) Alcohol dependence with uncomplicated withdrawal Current Visit: Yes Status: Acute (2) Cannabis dependence, uncomplicated Current Visit: Yes Status: Acute (3) Cocaine dependence, uncomplicated Current Visit: Yes Status: Acute (4) Bipolar disorder Current Visit: Yes Status: Chronic Qualifiers: Active/Remission status: currently active (5) Nicotine dependence Current Visit: Yes Status: Acute Qualifiers: Nicotine product type: cigarettes Substance use status: uncomplicated Qualified Code(s): F17.210 - Nicotine dependence, cigarettes, uncomplicated Cleared for Admission [facility] - Detox or Rehab [facility] Level of Care: Medically Managed Detox Regimen/Protocol: Librium Claeared for Rehab Admission: No Breathalyzer - Breathalyzer Breathalyzer: 0 Urine Drug Screen - Test Device Lot number: [id number] Expiration date: 10/04/21 - Control Is test valid?: Yes - Results Drug screen NEGATIVE: No Urine drug screen results: ABDIRAHMAN-Cocaine, MET-Methamphetamine, AMP-Amphetamines, BZO-Benzodiazepines Inpatient Rehab Admission - Rehab Decision to Admit Inpatient rehab admission?: No
[2019-12-27] MEDS ORDERED: METHOCARBAMOL 500 MG TABLET PO PRN (14:27)
[2019-12-27] MEDS ORDERED: MAG HYDROX/AL HYDROX/SIMETH 30 ML UNIT-DOSE CUP PO PRN (14:27)
[2019-12-27] MEDS ORDERED: chlordiazePOXIDE HCL 25 MG CAPSULE PO ONE (14:27)
[2019-12-27] MEDS ORDERED: IBUPROFEN 400 MG TABLET (FP) PO PRN (14:27)
[2019-12-27] MEDS ORDERED: NICOTINE POLACRILEX 2 MG GUM BUC PRN (14:27)
[2019-12-27] MEDS ORDERED: MELATONIN 5 MG TABLETS PO PRN (14:27)
[2019-12-27] MEDS ORDERED: hydrOXYzine PAMOATE 25 MG CAPSULE (FP) PO PRN (14:27)
[2019-12-27] MEDS ORDERED: ACETAMINOPHEN 325 MG TABLET (FP) PO PRN ×2 (14:27)
[2019-12-27] MEDS ORDERED: MAGNESIUM HYDROX 2400MG/30ML ORAL SUSPENSION 30 ML CUP PO PRN (14:27)
[2019-12-27] MEDS ORDERED: chlordiazePOXIDE HCL 10 MG CAPSULE PO PRN (14:27)
[2019-12-27] MEDS ORDERED: MAGNESIUM CITRATE 300 ML BOTTLE PO PRN (14:27)
[2019-12-27] MEDS ORDERED: BISMUTH SUBSALICYLATE 524 MG/30 ML UD PO PRN (14:27)
[2019-12-27] MEDS ORDERED: MENTHOL/PHENOL 1 EACH UD MM PRN (14:27)
[2019-12-27] MEDS: NICOTINE 14 MG/24 HOURS TOPICAL PATCH TD SCH (15:13)
[2019-12-27] MEDS: THIAMINE HCL 100 MG TABLET (FP) PO SCH (22:05)
[2019-12-27] MEDS: chlordiazePOXIDE HCL 25 MG CAPSULE PO SCH (22:05)
[2019-12-28] MEDS: chlordiazePOXIDE HCL 25 MG CAPSULE PO SCH ×3 (06:05→22:27)
[2019-12-28 09:45] LABS: HEMATOCRIT 37.8 % (35.4-49); HEMOGLOBIN 12.6 GM/dL (11.7-16.9); MCH 32.7 pg (25.7-33.7); MCHC 33.3 g/dl (32.0-35.9); MEAN CELL VOLUME 98.4 fl (80-96); MEAN PLT VOLUME 8.9 fl (7.5-11.1); PLATELET COUNT 328 K/MM3 (134-434); RBC 3.84 M/mm3 (4.00-5.60); RDW 14.4 % (11.9-15.9); WHITE BLOOD COUNT 4.5 K/mm3 (4.0-10.0)
[2019-12-28 10:16] LABS: ALBUMIN 3.3 g/dl (3.4-5.0); BILIRUBIN,TOTAL 0.8 mg/dL (0.2-1); BLOOD UREA NITROGEN 9.2 mg/dL (7-18); CREATININE 0.9 mg/dL (0.55-1.3); POTASSIUM 3.8 mmol/L (3.5-5.1); TOT PROT 7.7 g/dl (6.4-8.2)
[2019-12-28] MEDS: NICOTINE 14 MG/24 HOURS TOPICAL PATCH TD SCH (11:13)
[2019-12-28] MEDS: PRENATAL VITAMINS W/ FOLIC ACID TABLET (FP) PO SCH (11:13)
--- NOTE | 2019-12-28 13:34 | PN ---
S CIWA - CIWA Score Nausea/Vomitin-Mild Nausea/No Vomiting Muscle Tremors: 2 Anxiety: 3 Agitation: 2 Paroxysmal Sweats: 3 Orientation: 0-Oriented Tacttile Disturbances: 1-Very Mild Itch/Numbness Auditory Disturbances: 0-None Visual Disturbances: 0-None Headache: 1-Very Mild CIWA-Ar Total Score: 13 BHS Progress Note (SOAP) Subjective: Anxious, sweating, agitation Objective: 12/28/19 13:32 Last Vital Signs Temp Pulse Resp BP Pulse Ox 99.1 F 78 16 127/73 12/28/19 12:39 12/28/19 12:39 12/28/19 12:39 12/28/19 12:39 Laboratory Tests 12/28/19 12/28/19 12/28/19 07:10 07:10 07:10 WBC 4.5 RBC 3.84 L Hgb 12.6 Hct 37.8 MCV 98.4 H MCH 32.7 MCHC 33.3 RDW 14.4 Plt Count 328 D MPV 8.9 D Sodium 138 Potassium 3.8 Chloride 103 Carbon Dioxide 31 Anion Gap 4 L BUN 9.2 Creatinine 0.9 Est GFR (CKD-EPI)AfAm 115.02 Est GFR (CKD-EPI)NonAf 99.24 Random Glucose 107 H Calcium 9.0 Total Bilirubin 0.8 AST 36 ALT 29 Alkaline Phosphatase 98 Total Protein 7.7 Albumin 3.3 L RPR Titer HIV 1&2 Antibody Screen Negative HIV P24 Antigen Negative 12/28/19 07:10 WBC RBC Hgb Hct MCV MCH MCHC RDW Plt Count MPV Sodium Potassium Chloride Carbon Dioxide Anion Gap BUN Creatinine Est GFR (CKD-EPI)AfAm Est GFR (CKD-EPI)NonAf Random Glucose Calcium Total Bilirubin AST ALT Alkaline Phosphatase Total Protein Albumin RPR Titer Nonreactive HIV 1&2 Antibody Screen HIV P24 Antigen Labs reviewed Assessment: 12/28/19 13:33 Withdrawal sxs Plan: Continue detox Encouraged PO water intake
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
[2019-12-28] MEDS: QUEtiapine FUMARATE 50 MG TABLET PO SCH (15:23)
[2019-12-28] MEDS: QUEtiapine FUMARATE 100 MG TABLET (FP) PO SCH (22:26)
[2019-12-28] MEDS: THIAMINE HCL 100 MG TABLET (FP) PO SCH (22:26)
[2019-12-29] MEDS: chlordiazePOXIDE 5 MG CAPSULE PO SCH ×3 (06:13→21:15)
--- NOTE | 2019-12-29 09:34 | PN ---
S CIWA - CIWA Score Nausea/Vomitin Muscle Tremors: 2 Anxiety: 2 Agitation: 2 Paroxysmal Sweats: No Perspiration Orientation: 0-Oriented Tacttile Disturbances: 0-None Auditory Disturbances: 0-None Visual Disturbances: 0-None Headache: 1-Very Mild CIWA-Ar Total Score: 9 BHS Progress Note (SOAP) Subjective: alert,irritable,anxious,interrupted sleep,pain in the body Objective: 12/29/19 09:33 Vital Signs Temperature 97.4 F L 12/29/19 06:23 Pulse Rate 67 12/29/19 06:23 Respiratory Rate 18 12/29/19 06:23 Blood Pressure 108/71 12/29/19 06:23 O2 Sat by Pulse Oximetry (%) Laboratory Last Values WBC 4.5 K/mm3 (4.0-10.0) 12/28/19 07:10 RBC 3.84 M/mm3 (4.00-5.60) L 12/28/19 07:10 Hgb 12.6 GM/dL (11.7-16.9) 12/28/19 07:10 Hct 37.8 % (35.4-49) 12/28/19 07:10 MCV 98.4 fl (80-96) H 12/28/19 07:10 MCH 32.7 pg (25.7-33.7) 12/28/19 07:10 MCHC 33.3 g/dl (32.0-35.9) 12/28/19 07:10 RDW 14.4 % (11.9-15.9) 12/28/19 07:10 Plt Count 328 K/MM3 (134-434) D 12/28/19 07:10 MPV 8.9 fl (7.5-11.1) D 12/28/19 07:10 Sodium 138 mmol/L (136-145) 12/28/19 07:10 Potassium 3.8 mmol/L (3.5-5.1) 12/28/19 07:10 Chloride 103 mmol/L (98-107) 12/28/19 07:10 Carbon Dioxide 31 mmol/L (21-32) 12/28/19 07:10 Anion Gap 4 MMOL/L (8-16) L 12/28/19 07:10 BUN 9.2 mg/dL (7-18) 12/28/19 07:10 Creatinine 0.9 mg/dL (0.55-1.3) 12/28/19 07:10 Est GFR (CKD-EPI)AfAm 115.02 12/28/19 07:10 Est GFR (CKD-EPI)NonAf 99.24 12/28/19 07:10 Random Glucose 107 mg/dL (74-106) H 12/28/19 07:10 Calcium 9.0 mg/dL (8.5-10.1) 12/28/19 07:10 Total Bilirubin 0.8 mg/dL (0.2-1) 12/28/19 07:10 AST 36 U/L (15-37) 12/28/19 07:10 ALT 29 U/L (13-61) 12/28/19 07:10 Alkaline Phosphatase 98 U/L (45-117) 12/28/19 07:10 Total Protein 7.7 g/dl (6.4-8.2) 12/28/19 07:10 Albumin 3.3 g/dl (3.4-5.0) L 12/28/19 07:10 RPR Titer Nonreactive (NONREACTIVE) 12/28/19 07:10 HIV 1&2 Antibody Screen Negative 12/28/19 07:10 HIV P24 Antigen Negative 12/28/19 07:10 Assessment: 12/29/19 09:33 withdrawal symptom Plan: continue detox librium regimen
[2019-12-29] MEDS: PRENATAL VITAMINS W/ FOLIC ACID TABLET (FP) PO SCH (10:22)
[2019-12-29] MEDS: QUEtiapine FUMARATE 50 MG TABLET PO SCH (10:22)
[2019-12-29] MEDS: NICOTINE 14 MG/24 HOURS TOPICAL PATCH TD SCH (10:22)
[2019-12-29] MEDS: QUEtiapine FUMARATE 100 MG TABLET (FP) PO SCH (21:14)
[2019-12-29] MEDS: THIAMINE HCL 100 MG TABLET (FP) PO SCH (21:15)
[2019-12-30] MEDS ORDERED: chlordiazePOXIDE HCL 10 MG CAPSULE PO PRN
[2019-12-30] MEDS: chlordiazePOXIDE HCL 10 MG CAPSULE PO SCH ×3 (05:30→21:17)
[2019-12-30] MEDS: PRENATAL VITAMINS W/ FOLIC ACID TABLET (FP) PO SCH (10:19)
[2019-12-30] MEDS: NICOTINE 14 MG/24 HOURS TOPICAL PATCH TD SCH (10:19)
[2019-12-30] MEDS: QUEtiapine FUMARATE 50 MG TABLET PO SCH (10:20)
--- NOTE | 2019-12-30 11:40 | PN ---
[facility] CIWA - CIWA Score Nausea/Vomitin-No Nausea/No Vomiting Muscle Tremors: 1-None Visible, but Orange Anxiety: 2 Agitation: 2 Paroxysmal Sweats: No Perspiration Orientation: 0-Oriented Tacttile Disturbances: 0-None Auditory Disturbances: 0-None Visual Disturbances: 0-None Headache: 2-Mild CIWA-Ar Total Score: 7 S Progress Note (SOAP) Subjective: alert,irritable,interrupted sleep,anxious Objective: 12/30/19 11:38 Vital Signs Temperature 99.0 F 12/30/19 09:12 Pulse Rate 97 H 12/30/19 09:12 Respiratory Rate 14 12/30/19 09:12 Blood Pressure 114/66 12/30/19 09:12 O2 Sat by Pulse Oximetry (%) 12/30/19 11:38 Laboratory Last Values WBC 4.5 K/mm3 (4.0-10.0) 12/28/19 07:10 RBC 3.84 M/mm3 (4.00-5.60) L 12/28/19 07:10 Hgb 12.6 GM/dL (11.7-16.9) 12/28/19 07:10 Hct 37.8 % (35.4-49) 12/28/19 07:10 MCV 98.4 fl (80-96) H 12/28/19 07:10 MCH 32.7 pg (25.7-33.7) 12/28/19 07:10 MCHC 33.3 g/dl (32.0-35.9) 12/28/19 07:10 RDW 14.4 % (11.9-15.9) 12/28/19 07:10 Plt Count 328 K/MM3 (134-434) D 12/28/19 07:10 MPV 8.9 fl (7.5-11.1) D 12/28/19 07:10 Sodium 138 mmol/L (136-145) 12/28/19 07:10 Potassium 3.8 mmol/L (3.5-5.1) 12/28/19 07:10 Chloride 103 mmol/L (98-107) 12/28/19 07:10 Carbon Dioxide 31 mmol/L (21-32) 12/28/19 07:10 Anion Gap 4 MMOL/L (8-16) L 12/28/19 07:10 BUN 9.2 mg/dL (7-18) 12/28/19 07:10 Creatinine 0.9 mg/dL (0.55-1.3) 12/28/19 07:10 Est GFR (CKD-EPI)AfAm 115.02 12/28/19 07:10 Est GFR (CKD-EPI)NonAf 99.24 12/28/19 07:10 Random Glucose 107 mg/dL (74-106) H 12/28/19 07:10 Calcium 9.0 mg/dL (8.5-10.1) 12/28/19 07:10 Total Bilirubin 0.8 mg/dL (0.2-1) 12/28/19 07:10 AST 36 U/L (15-37) 12/28/19 07:10 ALT 29 U/L (13-61) 12/28/19 07:10 Alkaline Phosphatase 98 U/L (45-117) 12/28/19 07:10 Total Protein 7.7 g/dl (6.4-8.2) 12/28/19 07:10 Albumin 3.3 g/dl (3.4-5.0) L 12/28/19 07:10 RPR Titer Nonreactive (NONREACTIVE) 12/28/19 07:10 HIV 1&2 Antibody Screen Negative 12/28/19 07:10 HIV P24 Antigen Negative 12/28/19 07:10 Assessment: 12/30/19 11:39 withdrawal symptom Plan: continue detox librium regimen,chest xray on 12/29/2019 reported no acute chest pathology,discharge in am
[2019-12-30] MEDS: QUEtiapine FUMARATE 100 MG TABLET (FP) PO SCH (21:17)
[2019-12-30] MEDS: THIAMINE HCL 100 MG TABLET (FP) PO SCH (21:17)
[2019-12-31] MEDS ORDERED: chlordiazePOXIDE HCL 10 MG CAPSULE PO ONE (05:00)
--- NOTE | 2019-12-31 08:44 | PN ---
[facility] Progress Note Note: Patient is discharged today. Scripts for 30 days supply of medication(Seroquel 50 mg/day & 100 mg/hs) is electronically transmitted to [facility] at [address] [place], [place] [id number]
--- NOTE | 2019-12-31 08:59 | PN ---
[facility] CIWA - CIWA Score Nausea/Vomitin-No Nausea/No Vomiting Muscle Tremors: None Anxiety: 1-Mildly Anxious Agitation: 0-Normal Activity Paroxysmal Sweats: No Perspiration Orientation: 0-Oriented Tacttile Disturbances: 0-None Auditory Disturbances: 0-None Visual Disturbances: 0-None Headache: 0-None Present CIWA-Ar Total Score: 1 S Progress Note (SOAP) Subjective: alert,no complaint Objective: 12/31/19 08:58 Vital Signs Temperature 97.7 F 12/31/19 05:54 Pulse Rate 69 12/31/19 05:54 Respiratory Rate 18 12/31/19 05:54 Blood Pressure 103/67 12/31/19 05:54 O2 Sat by Pulse Oximetry (%) Assessment: 12/31/19 08:58 detox completed,no withdrawal symptom Plan: discharge today,follow up with after care [facility] arrangement
--- NOTE | 2019-12-31 09:00 | DS ---
[facility] Detox Discharge Summary Admission Date: 12/27/19 Discharge Date: 12/31/19 - History Present History: Alcohol Dependence, Cocaine Dependence, Sedative Dependence Additional Comments: alert,oriented x 3 ambulation on the unit heart normal heart sound,s1s2 lung clear no abdominal pain stable for discharge total discharge time is 35 mins follow up with [facility] as arrangement Pertinent Past History: bipolar disorder ptsd positive ppd - Physical Exam Results Vital Signs: Vital Signs Temperature 97.7 F 12/31/19 05:54 Pulse Rate 69 12/31/19 05:54 Respiratory Rate 18 12/31/19 05:54 Blood Pressure 103/67 12/31/19 05:54 O2 Sat by Pulse Oximetry (%) Pertinent Admission Physical Exam Findings: withdrawal signs and symptom Laboratory Last Values WBC 4.5 K/mm3 (4.0-10.0) 12/28/19 07:10 RBC 3.84 M/mm3 (4.00-5.60) L 12/28/19 07:10 Hgb 12.6 GM/dL (11.7-16.9) 12/28/19 07:10 Hct 37.8 % (35.4-49) 12/28/19 07:10 MCV 98.4 fl (80-96) H 12/28/19 07:10 MCH 32.7 pg (25.7-33.7) 12/28/19 07:10 MCHC 33.3 g/dl (32.0-35.9) 12/28/19 07:10 RDW 14.4 % (11.9-15.9) 12/28/19 07:10 Plt Count 328 K/MM3 (134-434) D 12/28/19 07:10 MPV 8.9 fl (7.5-11.1) D 12/28/19 07:10 Sodium 138 mmol/L (136-145) 12/28/19 07:10 Potassium 3.8 mmol/L (3.5-5.1) 12/28/19 07:10 Chloride 103 mmol/L (98-107) 12/28/19 07:10 Carbon Dioxide 31 mmol/L (21-32) 12/28/19 07:10 Anion Gap 4 MMOL/L (8-16) L 12/28/19 07:10 BUN 9.2 mg/dL (7-18) 12/28/19 07:10 Creatinine 0.9 mg/dL (0.55-1.3) 12/28/19 07:10 Est GFR (CKD-EPI)AfAm 115.02 12/28/19 07:10 Est GFR (CKD-EPI)NonAf 99.24 12/28/19 07:10 Random Glucose 107 mg/dL (74-106) H 12/28/19 07:10 Calcium 9.0 mg/dL (8.5-10.1) 12/28/19 07:10 Total Bilirubin 0.8 mg/dL (0.2-1) 12/28/19 07:10 AST 36 U/L (15-37) 12/28/19 07:10 ALT 29 U/L (13-61) 12/28/19 07:10 Alkaline Phosphatase 98 U/L (45-117) 12/28/19 07:10 Total Protein 7.7 g/dl (6.4-8.2) 12/28/19 07:10 Albumin 3.3 g/dl (3.4-5.0) L 12/28/19 07:10 RPR Titer Nonreactive (NONREACTIVE) 12/28/19 07:10 HIV 1&2 Antibody Screen Negative 12/28/19 07:10 HIV P24 Antigen Negative 12/28/19 07:10 Vital Signs Temperature 97.7 F 12/31/19 05:54 Pulse Rate 69 12/31/19 05:54 Respiratory Rate 18 12/31/19 05:54 Blood Pressure 103/67 12/31/19 05:54 O2 Sat by Pulse Oximetry (%) - Treatment Hospital Course: Detox Protocol Followed, Detoxed Safely, Responded well, Discharged Condition Good, Rehab Referral Accepted Patient has Accepted a Rehab Referral to: [facility] - Medication Discharge Medications: Ambulatory Orders Quetiapine Fumarate [Seroquel -] 50 mg PO DAILY #30 tablet 12/31/19 Quetiapine Fumarate [Seroquel -] 100 mg PO HS #30 tablet 12/31/19 - Diagnosis (1) Alcohol dependence with uncomplicated withdrawal Current Visit: Yes Status: Acute (2) Cannabis dependence, uncomplicated Current Visit: Yes Status: Acute (3) Cocaine abuse Current Visit: Yes Status: Acute (4) Sedative, hypnotic or anxiolytic abuse Current Visit: Yes Status: Acute (5) Bipolar disorder Current Visit: Yes Status: Chronic Qualifiers: Active/Remission status: currently active (6) Nicotine dependence Current Visit: Yes Status: Chronic Qualifiers: Nicotine product type: cigarettes Substance use status: uncomplicated Qualified Code(s): F17.210 - Nicotine dependence, cigarettes, uncomplicated (7) PTSD (post-traumatic stress disorder) Current Visit: No Status: Chronic (8) PPD positive Current Visit: No Status: Resolved - AMA Did Patient Leave Against Medical Advice: No
[2019-12-31 09:49] VITALS: BP 115/79; PULSE 92; TEMP 97.5
[2019-12-31] MEDS: NICOTINE 14 MG/24 HOURS TOPICAL PATCH TD SCH (10:42)
[2019-12-31] MEDS: QUEtiapine FUMARATE 50 MG TABLET PO SCH (10:43)
[2019-12-31] MEDS: PRENATAL VITAMINS W/ FOLIC ACID TABLET (FP) PO SCH (10:43)
== END 2019-12-31 09:20 | disposition home or self-care (01) | DRG 774 ==
LOC: YASAS 12:44 → Y6N 13:45
PROVIDERS: ADMIT Allergy & Immunology; ATTEND Allergy & Immunology
PROC: HZ2ZZZZ Detoxification Services for Substance Abuse Treatment (ICD-10-PCS; principal; 2019-12-27)
DX: F10.230 Alcohol dependence with withdrawal, uncomplicated (principal); F13.20 Sedative, hypnotic or anxiolytic dependence, uncomplicated; F14.20 Cocaine dependence, uncomplicated; F12.20 Cannabis dependence, uncomplicated; F15.10 Other stimulant abuse, uncomplicated; F17.210 Nicotine dependence, cigarettes, uncomplicated; F19.282 Other psychoactive substance dependence with psychoactive substance-induced sleep disorder; F31.9 Bipolar disorder, unspecified; F43.10 Post-traumatic stress disorder, unspecified; R76.11 Nonspecific reaction to tuberculin skin test without active tuberculosis; Z86.2 Personal history of diseases of the blood and blood-forming organs and certain disorders involving the immune mechanism; Z62.810 Personal history of physical and sexual abuse in childhood
CPT/HCPCS: 36415; 71046-TC-FY; 80053; 85027; 86593; 87389

== ENCOUNTER 2020-06-19 11:42 | Inpatient (IN) | payer OTHER ==
--- NOTE | 2020-06-19 16:47 | BHS.RME ---
Substance Use & Tx History - Substance Use History Heroin Substance amount: 3 bags of heroin Frequency of use: Daily Substance route: Inhalation (ex: sniffing or snorting) Date of Last Use: 06/18/20 Alcohol Substance amount: 1pint of liquor/6 packs of 25 ozs Frequency of use: Daily Substance route: Oral Date of Last Use: 06/19/20 Cocaine- Powder Substance amount: 1004 Frequency of use: More than 3 times per week Date of Last Use: 06/18/20 Marijuana/Hashish Substance amount: 100$ Frequency of use: Daily Substance route: Smoking Date of Last Use: 06/16/20 - Last Treatment Date of last treatment: [facility] 12/27/19 to 12/31/19 Where was last treatment: Detox Physical/Psych/Mental Status - Behavior Eye Contact: Normal - Cooperativeness Cooperativeness: Cooperative - Thinking Thought Processes: Logical Thought content: Future oriented - Physical Health Problems Is patient presently having any pain?: No Does patient presently have any injuries (include location): No Does patient currently have a fever: No COWS - Scale Resting Pulse: 1= [place] 81-100 Sweatin= Chills/Flushing Restless Observation: 0= Sits Still Pupil Size: 1= Pupils >than Normal Bone or Joint Aches: 2= Severe Diffuse Aches Runny Nose/ Eye Tearin= Runny Nose/Eyes GI Upset > 30mins: 2= Nausea/Diarrhea Tremor Observation: 1= Tremor [place], Not Seen Yawning Observation: 1= 1-2x During Session Anxiety or Irritability: 2=Irritable/Anxious Goose Flesh Skin: 0=Smooth Skin COWS Score: 13 CIWA Nausea/Vomitin-Mild Nausea/No Vomiting Muscle Tremors: 2 Anxiety: 3 Agitation: 3 Paroxysmal Sweats: 1-Minimal Palms Moist Orientation: 0-Oriented Tacttile Disturbances: 1-Very Mild Itch/Numbness Auditory Disturbances: 0-None Visual Disturbances: 0-None Headache: 2-Mild CIWA-Ar Total Score: 13
--- NOTE | 2020-06-19 16:57 | HP ---
COWS - Scale Resting Pulse: 1= [place] 81-100 Sweatin= Chills/Flushing Restless Observation: 0= Sits Still Pupil Size: 1= Pupils >than Normal Bone or Joint Aches: 2= Severe Diffuse Aches Runny Nose/ Eye Tearin= Runny Nose/Eyes GI Upset > 30mins: 2= Nausea/Diarrhea Tremor Observation: 1= Tremor [place], Not Seen Yawning Observation: 1= 1-2x During Session Anxiety or Irritability: 2=Irritable/Anxious Goose Flesh Skin: 0=Smooth Skin COWS Score: 13 CIWA Score Nausea/Vomitin-Mild Nausea/No Vomiting Muscle Tremors: 2 Anxiety: 3 Agitation: 3 Paroxysmal Sweats: 1-Minimal Palms Moist Orientation: 0-Oriented Tacttile Disturbances: 1-Very Mild Itch/Numbness Auditory Disturbances: 0-None Visual Disturbances: 0-None Headache: 2-Mild CIWA-Ar Total Score: 13 - Admission Criteria OASAS Guidelines: Admission for Medically Managed Detox: Requires at least one of the followin. CIWA greater than 12 2. Seizures within the past 24 hours 3. Delirium tremens within the past 24 hours 4. Hallucinations within the past 24 hours 5. Acute intervention needed for co occurring medical disorder 6. Acute intervention needed for co occurring psychiatric disorder 7. Severe withdrawal that cannot be handled at a lower level of care (continued vomiting, continued diarrhea, abnormal vital signs) requiring intravenous medication and/or fluids 8. Admitting History and Physical - Admission Chief Complaint: I NEED HELP TO STOP USING HEROIN,ALCOHOL,COCAINE MARIJUANA History of Present Illness: this 50 years old male with heroin,alcohol,cocaine,marijuana dependence seeking detox,withdrawal symptom History Source: Patient Limitations to Obtaining History: No Limitations - Smoking History Smoking history: Current every day smoker Have you smoked in the past 12 months: Yes Aproximately how many cigarettes per day: 20 - Alcohol/Substance Use Hx Alcohol Use: Yes History of Substance Use: reports: Cocaine, Heroin, Marijuana Date of Last Use: 06/18/20 - Social History Usual Living Arrangement: Yes: Alone Do you think of yourself as: Straight/Heterosexual ADL: Independent Occupation: environmental engineering intern History of Recent Travel: No Other Social History: no legal issue Admission ROS S - [facility] Chief Complaint: i need help to tops uising heroin,alcohol,cocaine and marijuana Allergies/Adverse Reactions: Allergies Allergy/AdvReac Type Severity Reaction Status Date / Time No Known Allergies Allergy Verified 06/19/20 17:41 History of Present Illness: this 50 years old male with heroin,alcohol,cocaine,marijuana dependence seeking detox,withdrawal symptom, last detox [facility] in 12/2019 nicotine dependence denied seizure denied syncope no significant period of sobriety Exam Limitations: No Limitations - Ebola screening Have you traveled outside of the country in the last 21 days: No Have you had contact with anyone from an Ebola affected area: No Have you been sick,other than usual withdrawal symptoms: No Do you have a fever: No Patient History - Patient Medical History Hx Anemia: No Hx Asthma: No Hx Chronic Obstructive Pulmonary Disease (COPD): No Hx Cancer: No Hx Cardiac Disorders: No Hx Congestive Heart Failure: No Hx Hypertension: No Hx Hypercholesterolemia: No Hx Pacemaker: No HX Cerebrovascular Accident: No Hx Seizures: No Hx Dementia: No Hx Diabetes: No Hx Gastrointestinal Disorders: No Hx Liver Disease: No Hx Genitourinary Disorders: No Hx Sexually Transmitted Disorders: No Hx Renal Disease (ESRD): No Hx Thyroid Disease: No Hx Human Immunodeficiency Virus (HIV): No Hx Hepatitis C: No Hx Depression: Yes Hx Suicide Attempt: No Hx Bipolar Disorder: Yes Hx Schizophrenia: No - Patient Surgical History Past Surgical History: No Hx Neurologic Surgery: No Hx Cataract Extraction: No Hx Cardiac Surgery: No Hx Lung Surgery: No Hx Breast Surgery: No Hx Breast Biopsy: No Hx Abdominal Surgery: No Hx Appendectomy: No Hx Cholecystectomy: No Hx Genitourinary Surgery: No Hx Section: No Hx Orthopedic Surgery: No Anesthesia Reaction: No - PPD History Previous Implant?: No Documented Results: Positive w/proof Results: CXR(-)12/29/19 PPD to be Administered?: No - Smoking Cessation Smoking history: Current every day smoker Have you smoked in the past 12 months: Yes Aproximately how many cigarettes per day: 20 Hx Chewing Tobacco Use: No Initiated information on smoking cessation: Yes 'Breaking Loose' booklet given: 06/19/20 - Substances abused Alcohol Substance route: Oral Frequency: Daily Amount used: 1 pint to liter vodka/ loren/rum/scotch Age of first use: 10 Date of last use: 06/19/20 Heroin Substance route: Inhalation Frequency: 3-6 times per week Amount used: 100 to 500 $ Age of first use: 10 Date of last use: 06/18/20 Other Other (specify): PCP Substance route: Smoking Frequency: 1-3 times last 30 days Amount used: 20 dollars Age of first use: 10 Date of last use: 06/17/20 Marijuana/Hashish Substance route: Smoking Frequency: 3-6 times per week Amount used: 20 dollars Age of first use: 10 Date of last use: 06/18/20 Cocaine Frequency: 3-6 times per week Amount used: 100$ Age of first use: 10 Date of last use: 06/18/20 Admission Physical Exam [facility] - Vital Signs Vital Signs: Vital Signs Temperature 97.8 F 06/19/20 17:44 Pulse Rate 90 06/19/20 17:44 Respiratory Rate 18 06/19/20 17:44 Blood Pressure 117/71 06/19/20 17:44 O2 Sat by Pulse Oximetry (%) 95 06/19/20 17:59 - Physical General Appearance: Yes: Moderate Distress, Tremorous, Irritable, Sweating, Anxious HEENTM: Yes: Within Normal Limits, VADIM, Pharynx Normal Respiratory: Yes: Within Normal Limits, Lungs Clear, Normal Breath Sounds Neck: Yes: Within Normal Limits, No masses,lesions,Nodules, Trachea in good position Breast: Yes: Within Normal Limits Cardiology: Yes: Regular Rhythm, Regular Rate Abdominal: Yes: Normal Bowel Sounds, Non Tender, Flat, Soft - Diagnostic (1) Opioid dependence with withdrawal Current Visit: Yes Status: Acute (2) Alcohol dependence with uncomplicated withdrawal Current Visit: No Status: Acute (3) Cannabis dependence Current Visit: No Status: Acute (4) Cannabis dependence, uncomplicated Current Visit: No Status: Acute (5) Cocaine dependence Current Visit: No Status: Acute Cleared for Admission [facility] - Detox or Rehab [facility] Level of Care: Medically Managed Detox Regimen/Protocol: Methadone/Valium Breathalyzer - Breathalyzer Breathalyzer: 0 Urine Drug Screen - Test Device Lot number: [id number] Expiration date: 10/04/21 - Control Is test valid?: Yes - Results Drug screen NEGATIVE: No Urine drug screen results: ABDIRAHMAN-Cocaine, MET-Methamphetamine, AMP-Amphetamines, BZO-Benzodiazepines Inpatient Rehab Admission - Rehab Decision to Admit Inpatient rehab admission?: No
[2020-06-19] MEDS ORDERED: MAG HYDROX/AL HYDROX/SIMETH 30 ML UNIT-DOSE CUP PO PRN (17:00)
[2020-06-19] MEDS ORDERED: IBUPROFEN 400 MG TABLET (FP) PO PRN (17:00)
[2020-06-19] MEDS ORDERED: NALOXONE HCL 0.4 MG/ML VIAL IM PRN (17:00)
[2020-06-19] MEDS ORDERED: ONDANSETRON *ODT* 4 MG TABLET SL ONE (17:00)
[2020-06-19] MEDS ORDERED: diazePAM 5 MG TABLET PO PRN (17:00)
[2020-06-19] MEDS ORDERED: MAGNESIUM HYDROX 2400MG/30ML ORAL SUSPENSION 30 ML CUP PO PRN (17:00)
[2020-06-19] MEDS ORDERED: MAGNESIUM CITRATE 300 ML BOTTLE PO PRN (17:00)
[2020-06-19] MEDS ORDERED: MENTHOL/PHENOL 1 EACH UD MM PRN (17:00)
[2020-06-19] MEDS ORDERED: cloNIDine HCL 0.1 MG TABLET PO PRN (17:00)
[2020-06-19] MEDS ORDERED: METHADONE HCL 10 MG TABLET (FOR DETOX USE ONLY) PO ONE (17:00)
[2020-06-19] MEDS ORDERED: METHOCARBAMOL 500 MG TABLET PO PRN (17:00)
[2020-06-19] MEDS ORDERED: ACETAMINOPHEN 325 MG TABLET (FP) PO PRN ×2 (17:00)
[2020-06-19] MEDS ORDERED: BISMUTH SUBSALICYLATE 524 MG/30 ML UD PO PRN (17:00)
[2020-06-19 17:25] VITALS: BMI 25.8
[2020-06-19] MEDS: hydrOXYzine PAMOATE 25 MG CAPSULE (FP) PO SCH ×2 (19:35→23:08)
[2020-06-19] MEDS ORDERED: MASKS NR ONE (19:38)
[2020-06-19] MEDS: MELATONIN 5 MG TABLETS PO SCH (23:07)
[2020-06-19] MEDS: diazePAM 5 MG TABLET PO SCH (23:07)
[2020-06-19] MEDS: THIAMINE HCL 100 MG TABLET (FP) PO SCH (23:08)
[2020-06-20] MEDS: hydrOXYzine PAMOATE 25 MG CAPSULE (FP) PO SCH ×5 (05:53→22:30)
[2020-06-20] MEDS: diazePAM 5 MG TABLET PO SCH ×3 (05:53→22:30)
[2020-06-20] MEDS ORDERED: METHADONE HCL 5 MG TABLET (FOR DETOX USE ONLY) ONE (09:50)
[2020-06-20] MEDS ORDERED: METHADONE HCL 10 MG TABLET (FOR DETOX USE ONLY) ONE (09:51)
[2020-06-20] MEDS ORDERED: METHADONE (DETOX) 20 MG, METHADONE (DETOX) 5 MG PO ONE (10:00)
[2020-06-20 10:49] LABS: ALBUMIN 3.9 g/dl (3.4-5.0); BLOOD UREA NITROGEN 14.9 mg/dL (7-18); CALCIUM 8.7 mg/dL (8.5-10.1); POTASSIUM 4.4 mmol/L (3.5-5.1)
[2020-06-20 10:55] LABS: CREATININE 0.9 mg/dL (0.55-1.3); TOT PROT 7.5 g/dl (6.4-8.2)
[2020-06-20 10:56] LABS: HEMATOCRIT 43.9 % (35.4-49); HEMOGLOBIN 14.2 GM/dL (11.7-16.9); MCH 32.5 pg (25.7-33.7); MCHC 32.4 g/dl (32.0-35.9); MEAN CELL VOLUME 100.3 fl (80-96); MEAN PLT VOLUME 11.8 fl (7.5-11.1); PLATELET COUNT 149 K/MM3 (134-434); RBC 4.38 M/mm3 (4.00-5.60); RDW 13.6 % (11.9-15.9)
[2020-06-20 10:57] LABS: WHITE BLOOD COUNT 7.6 K/mm3 (4.0-10.0)
[2020-06-20] MEDS: PRENATAL VITAMINS W/ FOLIC ACID TABLET (FP) PO SCH (11:00)
[2020-06-20 11:36] LABS: BILIRUBIN,TOTAL 1.6 mg/dL (0.2-1)
--- NOTE | 2020-06-20 16:28 | PN ---
S CIWA - CIWA Score Nausea/Vomitin-Mild Nausea/No Vomiting Muscle Tremors: 2 Anxiety: 2 Agitation: 3 Paroxysmal Sweats: No Perspiration Orientation: 0-Oriented Tacttile Disturbances: 0-None Auditory Disturbances: 0-None Visual Disturbances: 2-Mild Sensitivity Headache: 1-Very Mild CIWA-Ar Total Score: 11 S COWS - Scale Resting Pulse: 0= [place] 80 or Below Sweatin= Chills/Flushing Restless Observation: 0= Sits Still Pupil Size: 1= Pupils >than Normal Bone or Joint Aches: 1= Mild Discomfort Runny Nose/ Eye Tearin= None GI Upset > 30mins: 2= Nausea/Diarrhea Tremor Observation of Outstretched Hands: 2= Slight Tremor Visible Yawning Observation: 0= None Anxiety or Irritability: 1=Feels Anxious/Irritable Goose Flesh Skin: 3=Piloerection COWS Score: 11 S Progress Note (SOAP) Subjective: 50 YEARS OLD MALE ADMITTED ON 06/19/20 FOR ALCOHOL AND OPIATE WITHDRAWAL SX MANAGEMENT TREATING WITH VALIUM AND METHADONE DETOX REGIMENTS TREMOR ANXIETY RESTLESSNESS Objective: 06/20/20 16:27 Vital Signs - 24 hr 06/19/20 06/19/20 06/19/20 17:17 17:44 17:59 Temperature 97.8 F 97.8 F Pulse Rate 90 90 Respiratory 18 18 Rate Blood Pressure 117/71 117/71 O2 Sat by Pulse 95 Oximetry (%) 06/19/20 06/19/20 06/20/20 19:33 20:51 07:11 Temperature 97.3 F L 97.1 F L 97.8 F Pulse Rate 79 82 67 Respiratory 18 18 18 Rate Blood Pressure 111/75 115/66 108/73 O2 Sat by Pulse 98 95 97 Oximetry (%) 06/20/20 08:45 Temperature 97.1 F L Pulse Rate 78 Respiratory 18 Rate Blood Pressure 109/76 O2 Sat by Pulse Oximetry (%) Laboratory Tests 06/19/20 06/20/20 06/20/20 18:00 08:00 08:00 WBC 7.6 RBC 4.38 Hgb 14.2 Hct 43.9 D MCV 100.3 H MCH 32.5 MCHC 32.4 RDW 13.6 Plt Count 149 D MPV 11.8 H D Sodium Potassium Chloride Carbon Dioxide Anion Gap BUN Creatinine Est GFR (CKD-EPI)AfAm Est GFR (CKD-EPI)NonAf Random Glucose Calcium Total Bilirubin AST ALT Alkaline Phosphatase Total Protein Albumin Syphilis Serology Non-reactive COVID-19 (BRITTANY) Not detected 06/20/20 08:00 WBC RBC Hgb Hct MCV MCH MCHC RDW Plt Count MPV Sodium 142 Potassium 4.4 Chloride 104 Carbon Dioxide 31 Anion Gap 7 L BUN 14.9 Creatinine 0.9 Est GFR (CKD-EPI)AfAm 114.21 Est GFR (CKD-EPI)NonAf 98.54 Random Glucose 97 Calcium 8.7 Total Bilirubin 1.6 H AST 55 H ALT 48 Alkaline Phosphatase 60 Total Protein 7.5 Albumin 3.9 Syphilis Serology COVID-19 (BRITTANY) LAB NOTED Assessment: 06/20/20 16:27 ALCOHOL AND OPIATE WITHDRAWAL Plan: VALIUM AND METHADONE REGIMENTS
[2020-06-20] MEDS: THIAMINE HCL 100 MG TABLET (FP) PO SCH (22:30)
[2020-06-20] MEDS: MELATONIN 5 MG TABLETS PO SCH (22:30)
[2020-06-21] MEDS ORDERED: diazePAM 5 MG TABLET PO SCH (06:00)
[2020-06-21] MEDS: hydrOXYzine PAMOATE 25 MG CAPSULE (FP) PO SCH ×3 (06:14→15:08)
[2020-06-21] MEDS ORDERED: METHADONE HCL 10 MG TABLET (FOR DETOX USE ONLY) PO ONE (10:00)
[2020-06-21] MEDS: PRENATAL VITAMINS W/ FOLIC ACID TABLET (FP) PO SCH (10:49)
--- NOTE | 2020-06-21 10:53 | PN ---
[facility] CIWA - CIWA Score Nausea/Vomitin-Mild Nausea/No Vomiting Muscle Tremors: 2 Anxiety: 3 Agitation: 1-Slight > Activity Paroxysmal Sweats: No Perspiration Orientation: 0-Oriented Tacttile Disturbances: 0-None Auditory Disturbances: 0-None Visual Disturbances: 2-Mild Sensitivity Headache: 0-None Present CIWA-Ar Total Score: 9 S COWS - Scale Resting Pulse: 0= [place] 80 or Below Sweatin= Chills/Flushing Restless Observation: 0= Sits Still Pupil Size: 1= Pupils >than Normal Bone or Joint Aches: 0= None Runny Nose/ Eye Tearin= Nasal Congestion GI Upset > 30mins: 2= Nausea/Diarrhea Tremor Observation of Outstretched Hands: 2= Slight Tremor Visible Yawning Observation: 0= None Anxiety or Irritability: 2=Irritable/Anxious Goose Flesh Skin: 0=Smooth Skin COWS Score: 9 S Progress Note (SOAP) Subjective: 50 years old male was admitted on 06/19/20 for alcohol and opiate withdrawal sx management treating with valium and methadone detox regiments encourage mr flores to consider medication assisted treatment program and 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 Objective: 06/21/20 10:55 Vital Signs - 24 hr 06/20/20 06/20/20 06/21/20 16:49 20:53 06:47 Temperature 98.0 F 98.0 F 97.1 F L Pulse Rate 106 H 92 H 79 Respiratory 18 18 16 Rate Blood Pressure 122/77 130/79 115/68 O2 Sat by Pulse 95 96 Oximetry (%) 06/21/20 09:30 Temperature 98.8 F Pulse Rate 79 Respiratory 20 Rate Blood Pressure 109/80 O2 Sat by Pulse Oximetry (%) Laboratory Tests 06/19/20 06/20/20 06/20/20 18:00 08:00 08:00 WBC 7.6 RBC 4.38 Hgb 14.2 Hct 43.9 D MCV 100.3 H MCH 32.5 MCHC 32.4 RDW 13.6 Plt Count 149 D MPV 11.8 H D Sodium Potassium Chloride Carbon Dioxide Anion Gap BUN Creatinine Est GFR (CKD-EPI)AfAm Est GFR (CKD-EPI)NonAf Random Glucose Calcium Total Bilirubin AST ALT Alkaline Phosphatase Total Protein Albumin Syphilis Serology Non-reactive COVID-19 (BRITTANY) Not detected 06/20/20 08:00 WBC RBC Hgb Hct MCV MCH MCHC RDW Plt Count MPV Sodium 142 Potassium 4.4 Chloride 104 Carbon Dioxide 31 Anion Gap 7 L BUN 14.9 Creatinine 0.9 Est GFR (CKD-EPI)AfAm 114.21 Est GFR (CKD-EPI)NonAf 98.54 Random Glucose 97 Calcium 8.7 Total Bilirubin 1.6 H AST 55 H ALT 48 Alkaline Phosphatase 60 Total Protein 7.5 Albumin 3.9 Syphilis Serology COVID-19 (BRITTANY) lab noted Assessment: 06/21/20 10:55 alcohol and opiate withdrawal Plan: valium and methadone regiment
[2020-06-21 14:01] VITALS: BP 107/71; PULSE 77; TEMP 97.3
--- NOTE | 2020-06-21 17:55 | DS ---
[facility] Detox Discharge Summary Admission Date: 06/19/20 - History Additional Comments: called by nursing for pt who indicated he wanted to leave . Pt declined to provide a reason , states " I am leaving " , declined further medical evaluation and attention . Pt was educated about the risks of leaving AMA and was encouraged to stay and complete tx . Pt verbalized an understanding and states he wished to proceed with discharge . Nursing aware . Pt ambulating freely , no distress . Vital Signs - 24 hr 06/20/20 06/21/20 06/21/20 20:53 06:47 09:30 Temperature 98.0 F 97.1 F L 98.8 F Pulse Rate 92 H 79 79 Respiratory 18 16 20 Rate Blood Pressure 130/79 115/68 109/80 O2 Sat by Pulse 95 96 Oximetry (%) 06/21/20 13:07 Temperature 97.3 F L Pulse Rate 77 Respiratory 20 Rate Blood Pressure 107/71 O2 Sat by Pulse 95 Oximetry (%) - Physical Exam Results Vital Signs: Vital Signs Temperature 97.3 F L 06/21/20 13:07 Pulse Rate 77 06/21/20 13:07 Respiratory Rate 20 06/21/20 13:07 Blood Pressure 107/71 06/21/20 13:07 O2 Sat by Pulse Oximetry (%) 95 06/21/20 13:07 - Medication Discharge Medications: Ambulatory Orders Quetiapine Fumarate [Seroquel -] 50 mg PO DAILY #30 tablet 12/31/19 Quetiapine Fumarate [Seroquel -] 100 mg PO HS #30 tablet 12/31/19 Naloxone HCl [Narcan] 4 mg NS ASDIR PRN #1 spray 06/21/20 - AMA Did Patient Leave Against Medical Advice: Yes
[2020-06-22] MEDS ORDERED: diazePAM 5 MG TABLET PO ONE (06:00)
[2020-06-22] MEDS ORDERED: METHADONE (DETOX) 10 MG, METHADONE (DETOX) 5 MG PO ONE (10:00)
[2020-06-23] MEDS ORDERED: METHADONE HCL 10 MG TABLET (FOR DETOX USE ONLY) PO ONE (10:00)
[2020-06-24] MEDS ORDERED: METHADONE HCL 5 MG TABLET (FOR DETOX USE ONLY) PO ONE (06:00)
== END 2020-06-21 17:20 | disposition left against medical advice (07) | DRG 770 ==
LOC: YASAS 11:42 → Y3N 17:53
PROVIDERS: ADMIT Allergy & Immunology; ATTEND Allergy & Immunology
PROC: HZ2ZZZZ Detoxification Services for Substance Abuse Treatment (ICD-10-PCS; principal; 2020-06-19)
DX: F10.230 Alcohol dependence with withdrawal, uncomplicated (principal); F11.23 Opioid dependence with withdrawal; F14.20 Cocaine dependence, uncomplicated; F12.20 Cannabis dependence, uncomplicated; F19.10 Other psychoactive substance abuse, uncomplicated; F17.210 Nicotine dependence, cigarettes, uncomplicated; F31.9 Bipolar disorder, unspecified
CPT/HCPCS: 36415; 80053; 85027; 86780; Q0162; U0003

== ENCOUNTER 2021-02-27 08:18 | Inpatient (IN) | payer OTHER ==
[2021-02-27 12:37] VITALS: BMI 25.8
[2021-02-27] MEDS ORDERED: METHOCARBAMOL 500 MG TABLET PO PRN (14:52)
[2021-02-27] MEDS ORDERED: IBUPROFEN 400 MG TABLET (FP) PO PRN (14:52)
[2021-02-27] MEDS ORDERED: LORazepam 1 MG TABLET PO PRN (14:52)
[2021-02-27] MEDS ORDERED: MAGNESIUM CITRATE 300 ML BOTTLE PO PRN (14:52)
[2021-02-27] MEDS ORDERED: MAG HYDROX/AL HYDROX/SIMETH 30 ML UNIT-DOSE CUP PO PRN (14:52)
[2021-02-27] MEDS ORDERED: MAGNESIUM HYDROX 2400MG/30ML ORAL SUSPENSION 30 ML CUP PO PRN (14:52)
[2021-02-27] MEDS ORDERED: MENTHOL/PHENOL 1 EACH UD MM PRN (14:52)
[2021-02-27] MEDS ORDERED: NICOTINE POLACRILEX 2 MG GUM BUC PRN (14:52)
[2021-02-27] MEDS ORDERED: ACETAMINOPHEN 325 MG TABLET (FP) PO PRN ×2 (14:52)
[2021-02-27] MEDS ORDERED: ONDANSETRON *ODT* 4 MG TABLET SL PRN (14:52)
[2021-02-27] MEDS ORDERED: BISMUTH SUBSALICYLATE 524 MG/30 ML UD PO PRN (14:52)
[2021-02-27] MEDS: hydrOXYzine PAMOATE 25 MG CAPSULE (FP) PO SCH ×2 (18:07→23:32)
[2021-02-27] MEDS: LORazepam 2 MG TABLET PO SCH ×2 (18:07→23:33)
[2021-02-27] MEDS ORDERED: MELATONIN 5 MG TABLETS PO SCH (22:00)
[2021-02-27] MEDS ORDERED: THIAMINE HCL 100 MG TABLET (FP) PO SCH (22:00)
[2021-02-28] MEDS: LORazepam 2 MG TABLET PO SCH ×2 (07:52→10:36)
[2021-02-28] MEDS: hydrOXYzine PAMOATE 25 MG CAPSULE (FP) PO SCH ×3 (07:53→13:45)
[2021-02-28] MEDS ORDERED: PRENATAL VITAMINS W/ FOLIC ACID TABLET (FP) PO SCH (10:00)
[2021-02-28 14:07] VITALS: BP 124/69; PULSE 77; TEMP 97.5
[2021-02-28] MEDS ORDERED: QUEtiapine FUMARATE 100 MG TABLET (FP) PO SCH (22:00)
[2021-03-01] MEDS ORDERED: LORazepam 1 MG TABLET PO SCH (05:00)
[2021-03-02] MEDS ORDERED: LORazepam 0.5 MG TABLET PO PRN
[2021-03-02] MEDS ORDERED: LORazepam 0.5 MG TABLET PO SCH (05:00)
[2021-03-03] MEDS ORDERED: LORazepam 0.5 MG TABLET PO ONE (05:00)
== END 2021-02-28 17:12 | disposition left against medical advice (07) | DRG 770 ==
LOC: YASAS 08:18 → Y3N 14:09
PROVIDERS: ADMIT Allergy & Immunology; ATTEND Allergy & Immunology
PROC: HZ2ZZZZ Detoxification Services for Substance Abuse Treatment (ICD-10-PCS; principal; 2021-02-27)
DX: F10.230 Alcohol dependence with withdrawal, uncomplicated (principal); F14.20 Cocaine dependence, uncomplicated; F15.10 Other stimulant abuse, uncomplicated; F12.20 Cannabis dependence, uncomplicated; F17.210 Nicotine dependence, cigarettes, uncomplicated; F19.282 Other psychoactive substance dependence with psychoactive substance-induced sleep disorder; F31.9 Bipolar disorder, unspecified; F43.10 Post-traumatic stress disorder, unspecified; F19.24 Other psychoactive substance dependence with psychoactive substance-induced mood disorder; R76.11 Nonspecific reaction to tuberculin skin test without active tuberculosis; Z62.810 Personal history of physical and sexual abuse in childhood; Z86.2 Personal history of diseases of the blood and blood-forming organs and certain disorders involving the immune mechanism; Z59.0 Homelessness; Z56.0 Unemployment, unspecified
CPT/HCPCS: 36415; 80053; 85027; 86780; C9803; U0003; U0005

== ENCOUNTER 2021-05-02 12:27 | Inpatient (IN) | payer OTHER ==
[2021-05-02 14:04] VITALS: BMI 25.2
[2021-05-02] MEDS ORDERED: MAGNESIUM HYDROX 2400MG/30ML ORAL SUSPENSION 30 ML CUP PO PRN (15:14)
[2021-05-02] MEDS ORDERED: METHOCARBAMOL 500 MG TABLET PO PRN (15:14)
[2021-05-02] MEDS ORDERED: MENTHOL/PHENOL 1 EACH UD MM PRN (15:14)
[2021-05-02] MEDS ORDERED: MAGNESIUM CITRATE 300 ML BOTTLE PO PRN (15:14)
[2021-05-02] MEDS ORDERED: BISMUTH SUBSALICYLATE 262 MG/15 ML BTL PO PRN (15:14)
[2021-05-02] MEDS ORDERED: ONDANSETRON *ODT* 4 MG TABLET SL PRN (15:14)
[2021-05-02] MEDS ORDERED: NICOTINE POLACRILEX 2 MG GUM BUC PRN (15:14)
[2021-05-02] MEDS ORDERED: MAG HYDROX/AL HYDROX/SIMETH 30 ML UNIT-DOSE CUP PO PRN (15:14)
[2021-05-02] MEDS ORDERED: ACETAMINOPHEN 325 MG TABLET (FP) PO PRN ×2 (15:14)
[2021-05-02] MEDS ORDERED: diazePAM 5 MG TABLET PO PRN (15:14)
[2021-05-02] MEDS ORDERED: IBUPROFEN 400 MG TABLET (FP) PO PRN (15:14)
[2021-05-02] MEDS: NICOTINE 14 MG/24 HOURS TOPICAL PATCH TD SCH (16:04)
[2021-05-02 17:20] LABS: HEMATOCRIT 37.8 % (35.4-49); HEMOGLOBIN 12.5 GM/dL (11.7-16.9); MCH 31.6 pg (25.7-33.7); MCHC 33.1 g/dl (32.0-35.9); MEAN CELL VOLUME 95.4 fl (80-96); PLATELET COUNT 138 10^3/uL (134-434); RBC 3.96 M/mm3 (4.00-5.60); RDW 13.5 % (11.9-15.9); WHITE BLOOD COUNT 3.1 K/mm3 (4.0-10.0)
[2021-05-02 17:26] LABS: BLOOD UREA NITROGEN 7.6 mg/dL (7-18)
[2021-05-02 17:27] LABS: CALCIUM 9.1 mg/dL (8.5-10.1)
[2021-05-02 17:29] LABS: CREATININE 0.8 mg/dL (0.55-1.3)
[2021-05-02 17:31] LABS: TOT PROT 6.8 g/dl (6.4-8.2)
[2021-05-02] MEDS: diazePAM 5 MG TABLET PO SCH ×2 (17:54→23:06)
[2021-05-02] MEDS: hydrOXYzine PAMOATE 25 MG CAPSULE (FP) PO SCH ×2 (17:55→23:06)
[2021-05-02 18:10] LABS: HIV INTERPRETATION NEGATIVE (NEGATIVE)
[2021-05-02] MEDS ORDERED: THIAMINE HCL 100 MG TABLET (FP) PO SCH (22:00)
[2021-05-02] MEDS ORDERED: MELATONIN 5 MG TABLETS PO SCH ×2 (22:00)
[2021-05-03] MEDS: diazePAM 5 MG TABLET PO SCH ×3 (06:32→17:44)
[2021-05-03] MEDS: hydrOXYzine PAMOATE 25 MG CAPSULE (FP) PO SCH ×4 (06:32→17:44)
[2021-05-03] MEDS ORDERED: PRENATAL VITAMINS W/ FOLIC ACID TABLET (FP) PO SCH (10:00)
[2021-05-03] MEDS: NICOTINE 14 MG/24 HOURS TOPICAL PATCH TD SCH (10:13)
[2021-05-03 17:21] VITALS: BP 117/76; PULSE 63; TEMP 97.7
[2021-05-04] MEDS ORDERED: diazePAM 5 MG TABLET PO SCH (06:00)
[2021-05-05] MEDS ORDERED: diazePAM 5 MG TABLET PO SCH (06:00)
[2021-05-06] MEDS ORDERED: diazePAM 5 MG TABLET PO ONE (06:00)
== END 2021-05-03 18:17 | disposition left against medical advice (07) | DRG 770 ==
LOC: YASAS 12:27 → Y6N 14:53
PROVIDERS: ADMIT Allergy & Immunology; ATTEND Allergy & Immunology
PROC: HZ2ZZZZ Detoxification Services for Substance Abuse Treatment (ICD-10-PCS; principal; 2021-05-02)
DX: F10.230 Alcohol dependence with withdrawal, uncomplicated (principal); F14.10 Cocaine abuse, uncomplicated; F12.20 Cannabis dependence, uncomplicated; F17.210 Nicotine dependence, cigarettes, uncomplicated; F31.9 Bipolar disorder, unspecified; F43.10 Post-traumatic stress disorder, unspecified; R76.11 Nonspecific reaction to tuberculin skin test without active tuberculosis; Z62.810 Personal history of physical and sexual abuse in childhood
CPT/HCPCS: 36415; 80053; 85027; 86780; 87389; C9803; U0003; U0005

== ENCOUNTER 2023-07-24 16:24 | Inpatient (IN) | payer OTHER ==
[2023-07-24 17:00] VITALS: BMI 22.1
[2023-07-24] MEDS ORDERED: METHOCARBAMOL 500 MG TABLET PO PRN (17:41)
[2023-07-24] MEDS ORDERED: NALOXONE HCL 0.4 MG/ML VIAL IM PRN (17:41)
[2023-07-24] MEDS ORDERED: BENZOCAINE/MENTHOL (CHLORASEPTIC ) LOZENGE MM PRN (17:41)
[2023-07-24] MEDS ORDERED: NALOXONE HCL (KLOXXADO) 8 MG SPRAY NS PRN (17:41)
[2023-07-24] MEDS ORDERED: IBUPROFEN 400 MG TABLET (FP) PO PRN (17:41)
[2023-07-24] MEDS ORDERED: POLYETHYLENE GLYCOL (HEALTHYLAX) 3350 17 GM PACKET PO PRN (17:41)
[2023-07-24] MEDS ORDERED: ACETAMINOPHEN 325 MG TABLET (FP) PO PRN (17:41)
[2023-07-24] MEDS ORDERED: LOPERAMIDE HCL 2 MG CAPSULE PO PRN (17:41)
[2023-07-24] MEDS ORDERED: BENZONATATE 200 MG CAPSULE PO PRN (17:41)
[2023-07-24] MEDS ORDERED: ONDANSETRON *ODT* 4 MG TABLET SL PRN (17:41)
[2023-07-24] MEDS ORDERED: MAG HYDROX/AL HYDROX/SIMETH 30 ML UNIT-DOSE CUP PO PRN (17:41)
[2023-07-24] MEDS ORDERED: BISMUTH SUBSALICYLATE 524 MG/30 ML PO PRN (17:41)
[2023-07-24] MEDS ORDERED: IBUPROFEN 600 MG TABLET (FP) PO PRN (17:41)
[2023-07-24] MEDS ORDERED: guaiFENesin 600 MG TABLET.ER (FP) PO PRN (17:41)
[2023-07-24] MEDS ORDERED: hydrOXYzine PAMOATE 25 MG CAPSULE (FP) PO PRN (17:41)
[2023-07-24] MEDS ORDERED: DICYCLOMINE HCL 10 MG CAPSULE PO PRN (17:41)
[2023-07-24] MEDS ORDERED: MAGNESIUM HYDROX 2400MG/30ML ORAL SUSPENSION 30 ML CUP PO PRN (17:41)
[2023-07-24] MEDS ORDERED: MELATONIN 5 MG TABLETS PO SCH (22:00)
[2023-07-24] MEDS ORDERED: THIAMINE HCL 100 MG TABLET (FP) PO SCH (22:00)
[2023-07-25 09:32] VITALS: BP 110/69; PULSE 76; RESP 20; TEMP 98.4
[2023-07-25] MEDS ORDERED: PRENATAL VITAMINS W/ FOLIC ACID TABLET (FP) PO SCH (10:00)
[2023-07-25 11:02] LABS: HEMATOCRIT 36.1 % (35.4-49); HEMOGLOBIN 12.4 GM/dL (11.7-16.9); MCH 32.9 pg (25.7-33.7); MCHC 34.4 g/dl (32.0-35.9); MEAN CELL VOLUME 95.7 fl (80-96); MEAN PLT VOLUME 10.1 fl (7.5-11.1); PLATELET COUNT 186 10^3/uL (134-434); RBC 3.77 M/mm3 (4.00-5.60); RDW 13.4 % (11.9-15.9); WHITE BLOOD COUNT 3.3 K/mm3 (4.0-10.0)
[2023-07-25 11:06] LABS: POTASSIUM 3.8 mmol/L (3.5-5.1)
[2023-07-25 11:08] LABS: CALCIUM 8.3 mg/dL (8.5-10.1)
[2023-07-25 11:09] LABS: BLOOD UREA NITROGEN 14.5 mg/dL (7-18)
[2023-07-25 11:12] LABS: CREATININE 0.6 mg/dL (0.55-1.3)
[2023-07-25 11:14] LABS: BILIRUBIN,TOTAL 0.6 mg/dL (0.2-1); TOT PROT 5.8 g/dl (6.4-8.2)
== END 2023-07-25 10:00 | disposition home or self-care (01) | DRG 774 ==
LOC: YASAS 16:24 → Y3N 17:53
PROVIDERS: ADMIT Allergy & Immunology; ATTEND Surgery
PROC: HZ2ZZZZ Detoxification Services for Substance Abuse Treatment (ICD-10-PCS; principal; 2023-07-24)
DX: F10.20 Alcohol dependence, uncomplicated (principal); F14.20 Cocaine dependence, uncomplicated; F12.20 Cannabis dependence, uncomplicated; F17.210 Nicotine dependence, cigarettes, uncomplicated; U07.1 COVID-19; M54.50 Low back pain, unspecified; G89.29 Other chronic pain; Z86.11 Personal history of tuberculosis
CPT/HCPCS: 36415; 80053; 85027; 86780; 87635; 87811